=== PATIENT | male | born 1975 | race Caucasian/White ===

== ENCOUNTER 2024-02-03 15:35 | Outpatient (AMB) | payer OTHER, SELFPAY ==
[2024-02-03 15:41] VITALS: BP 132/86; PULSE 102; O2SAT 96; BMI 35.7
--- NOTE | 2024-02-03 15:41 | A.OFFPC_ITS ---
Vital Signs 3 02/03/24 15:41 Height 5 ft 8 in Weight 235 lb 0.6 oz BMI 35.7 BP 132/86 Blood Pressure Location Lt brachial Position Sitting Pulse 102 H Pulse Source Pulse Oximeter Pulse Oximetry (%) 96 Oxygen Delivery Method Room Air Intake Visit Reasons: new patient Insect Control Aide Required: No Allergies No Known Allergies [No Known Allergies*] Allergy (Verified 02/03/24 16:04) Medication List - Last Reconciled 02/03/24 by Chata Santiago PA-C No Known Home Meds Tobacco use date assessed: 02/03/24 Dental Screening Dental Screen Date: 02/03/24 Did you have a dental visit in the last 12 months?: No Did you have a dental problem in the last 6 months where you did not have access to dental care?: No HPI new patient 2 HPI0 Details 48-year-old male with no documented past medical history come in to the office for the 1st time.? Patient is not known to [facility] Patient recently moved back to [place] and is looking to establish care. He is not up-to-date with his colonoscopy. He does mentioned he has a rash on his left thigh which has been present for around 9-10 months. He has had this rash in the past as well and it resolved. The rash is itchy and red but is not painful, leaking, warm, or swollen. He has tried using gold paz cream with no relief. Otherwise he has no acute concerns. [facility] Surgical History History of appendectomy Family History Paternal Grandfather Lung cancer Colon cancer Father Hypertension Social History Housing: Apartment Patient Tobacco Use Status: Never used Tobacco e-Cigarette/Vaping Use: Never Used service: No Current occupational status: employed Cognitive needs: No Hearing needs: No Vision needs: No Questionnaire PHQ-9 Over the last 2 weeks, how often have you been bothered by any of the following problems? 1. Little interest or pleasure in doing things: not at all 2. Feeling down, depressed, or hopeless: several days 3. Trouble falling or staying asleep, or sleeping too much: not at all 4. Feeling tired or having little energy: not at all 5. Poor appetite or overeating: more than half the days 6. Feeling bad about yourself - or that you are a failure or have let yourself or your family down: not at all 7. Trouble concentrating on things, such as reading the newspaper or watching television: not at all 8. Moving or speaking so slowly that other people could have noticed. Or the opposite - being so fidgety or restless that you have been moving around a lot more than usual: not at all 9. Thoughts that you would be better off or of hurting yourself in some way: not at all Total score: 3 Depression Screening Interpretation: Positive Depression Screening Done: Yes 85171 - PHQ-9 Billing: Yes Source: Developed by Drs. Chase Márquez, Summer Aburto, Sean Arshad and colleagues, with an educational randy from [employer]. Thrive Questionnaire Date Thrive assessed: 02/03/24 I am a: Patient What is your living situation today?: I have a steady place to live Within the past 12 months, did the food you bought not last and you didn't have the money to get more?: Never true Within the past 12 months, did you worry whether your food would run out before you got money to buy more?: Never true Do you have trouble paying for medicines?: No Do you have trouble getting transportation to medical appointments?: No Do you have trouble paying your heating and electricity bill?: No Do you have trouble taking care of your child, family member or friend?: No Do you have trouble with day-to-day activities such as bathing, preparing meals, shopping, managing finances, etc.?: No Are you currently unemployed and looking for a job?: No Are you interested in more education?: No Please select the resources that you would like help with: None Currently or been in a relationship where the following occur: No concerns reported THRIVE Score: 0 AUDIT C Alcohol Use Questionnaire (AUDIT-C) 1. How often do you have a drink containing alcohol?: 2-4 times a month 2. How many drinks containing alcohol do you have on a typical day when you are drinking?: 3 or 4 3. How often do you have six or more drinks on one occasion?: Less than monthly Total Score: 4 TRISTIAN-7 AMB Questionnaire TRISTIAN-7 Date TRISTIAN - 7 assessed: 02/03/24 Feeling nervous, anxious, or on edge: 1 = Several days Not being able to stop or control worryin = Several days Worrying too much about different things: 0 = Not at all Trouble relaxin = Not at all Being so restless that it is hard to sit still: 0 = Not at all Becoming easily annoyed or irritable: 1 = Several days Feeling afraid as if something awful might happen: 0 = Not at all Total TRISTIAN-7 score (0-4 normal; 5-9 mild; 10-14 moderate; 15-21 severe): 3 Source: Developed by Drs. Chase Márquez, Summer Aburto, Sean Arshad and colleagues, with an educational randy from [employer]. TRISTIAN-7 Assessment Billing TRISTIAN-7 Assessment Tool: TRISTIAN-7 Assessment 10403 Review of Systems Const Denies body aches, Reports fatigue, Denies fever(s), Denies frequent falls, Denies headache(s), Denies weakness and Reports weight loss Eyes Reports no additional complaints, Denies change in vision and Reports requires corrective lenses ENT Denies dysphagia, Denies dizziness, Denies facial pain, Denies headache(s), Denies nasal congestion and Denies odynophagia Card Denies chest pain, Denies syncope, Denies irregular heart rhythm, Denies leg edema, Denies lightheadedness and Denies dyspnea Resp Denies cough and Denies dyspnea GI Denies constipation, Denies dysphagia, Denies dyspepsia, Denies diarrhea, Denies nausea, Denies odynophagia and Denies vomiting Denies dysuria, Denies urinary frequency, Denies urinary hesitancy and Denies urinary urgency Musc Denies back pain and Denies myalgias Skin/Breast Reports system reviewed and no additional complaints, except as documented Neuro Denies dizziness, Denies syncope, Denies frequent falls, Denies headache(s) and Denies weakness Psych Details: Recent anxiety and depression surrounding the of his friend Reports no additional complaints Endo Reports fatigue Physical exam (Primary Care) Vital Signs: Last Vital Signs Pulse 102 H 02/03/24 15:41 BP 132/86 02/03/24 15:41 Pulse Ox 96 02/03/24 15:41 Oxygen Delivery Method Room Air 02/03/24 15:41 BMI result Body Mass Index 35.7 Tobacco/Smoking Status: Tobacco use Status Tobacco use date assessed 02/03/24 02/03/24 15:42 Patient Tobacco Use Status Never used Tobacco 02/03/24 15:49 e-Cigarette/Vaping Use Never Used 02/03/24 15:54 PHQ-9: PHQ-9 Score PHQ-9: Total score 3 02/03/24 16:02 Depression Screening Interpretation: Positive Thrive Assessment: Date of Thrive Assessment Date Thrive assessed 02/03/24 02/03/24 15:49 Currently or been in a relationship where the following occur: No concerns reported Const General: cooperative, healthy appearing, comfortable and no acute distress Orientation/consciousness: patient oriented x3 HENMT Head: Yes normocephalic Ears: hearing grossly normal bilaterally, external ears normal, TM's normal bilaterally and EAC's normal General nose exam: Normal external nose present Face and sinus: Yes normal facial exam and Yes sinuses nontender Mouth: Normal oral and palatal mucosa present and tongue normal Throat: Yes posterior oropharynx normal Eyes General: appearance normal, both eyes and all related structures Conjunctivae: conjunctivae normal Pupils: Equal, round and reactive pupils present EOM: EOMs intact bilaterally and No Nystagmus present Neck Neck: Yes normal visual inspection, Yes full ROM and Yes no lymphadenopathy Chest Chest palpation & inspection: normal inspection of the chest Resp Effort & Inspection: normal respiratory effort Auscultation: clear to auscultation bilaterally, no crackles, no rales, no rhonchi, no wheezes and breath sounds present Cardio Rate: regular rate Rhythm: regular rhythm Peripheral pulses: radial pulses present and dorsalis pedis present GI Inspection: Yes normal to inspection and No Abdominal wall edema Palpation (GI): Soft to palpation, not firm and nontender Auscultation: normal bowel sounds Rectal Exam - Male: Yes deferred General: Yes no CVA tenderness Back/Spine/Pelvis Back: no CVA tenderness Skin Other: Red, dry, patchy, scaling rash on left lateral thigh without warmth or swelling. Full body images: 2 1. Red scaling rash Neuro General: patient oriented x3 Cranial nerves: Yes Equal, round and reactive pupils present, Yes Midline tongue present, Yes Ability to bilaterally elevate shoulders present and No Nystagmus present Gait exam (Neuro): Normal gait present Extrem General: Yes normal to inspection, Yes full ROM, No no pedal edema and No edema Psych Speech and movement: Normal speech and movement present Affect: normal affect Insight: Good insight present (Psych) Judgement: Good judgement present (Psych) Assessment and Plan Assessment & Plan (1) Rash: Code(s): R21 - Rash and other nonspecific skin eruption Plan: Patient has a red, scaling, dry and itchy rash on left lateral thigh. He has been using gold paz psoriasis cream [id number] without relief. The rash has been present since he moved back to [place] in 04/2023. The rash looks to be consistent with psoriasis we will trial steroid creams and referral to Dermatology. (2) Fatigue: Code(s): R53.83 - Other fatigue Plan: Patient has been complaining of daytime fatigue and complains the patient snores and has pauses in his breathing. Will order for at home sleep study and follow up in 3 months. (3) Annual physical exam: Code(s): Z00.00 - Encounter for general adult medical examination without abnormal findings Plan: Patient is up-to-date on current vaccinations and Cologuard referral was sent today for colorectal cancer screening. We will follow up in 3 months after labs and sleep study or sooner pending lab results. Plan This note was constructed using voice recognition software. While every effort has been made to ensure accuracy and wash oil cooler operator, still areas may have been included sometimes these areas may affect the content or meeting of the given symptoms. Total time spent caring for the patient today was 35 minutes. This includes time spent before the visit reviewing the chart, time spent during the visit, and time spent after the visit and documentation. Orders: Orders 2 Prostate Specific Antigen Scr Today Z00.00 - Encounter for general adult medical examination without abnormal findings Thyroid Stimulating Hormone Today Z00.00 - Encounter for general adult medical examination without abnormal findings Complete Blood Count Auto Diff Today Z00.00 - Encounter for general adult medical examination without abnormal findings Comprehensive Met. Panel Today Z00.00 - Encounter for general adult medical examination without abnormal findings Lipid Panel Today Z00.00 - Encounter for general adult medical examination without abnormal findings RT home sleep study Today R53.83 - Other fatigue Free T4 (Free Thyroxine) Today Z00.00 - Encounter for general adult medical examination without abnormal findings Referrals 2 Cologuard Test Z12.11 - Encounter for screening for malignant neoplasm of colon Dermatology Referral R21 - Rash and other nonspecific skin eruption Coding Level of Care Code New Pt Prev Care 40-64y(35715) Diagnoses Rash R21 Fatigue R53.83 Annual physical exam Z00.00 Additional Codes TRISTIAN-7 Assessment Billing - TRISTIAN-7 Assessment Tool: TRISTIAN-7 Assessment 37460 ([id number])
== END 2024-02-03 16:31 | disposition home or self-care (01) ==
DX: Z00.00 Encounter for general adult medical examination without abnormal findings (principal); R21 Rash and other nonspecific skin eruption; R53.83 Other fatigue
CPT/HCPCS: 99386

== ENCOUNTER → 2024-03-22 08:00 | Outpatient (BNV) | payer OTHER, SELFPAY | PROVIDERS: Visit Provider Internal Medicine | DX: G47.33 Obstructive sleep apnea (adult) (pediatric) (principal) | CPT/HCPCS: 95806 ==

== ENCOUNTER → 2024-03-22 08:03 | Outpatient (REF) | payer OTHER, SELFPAY | LOC: HO.SL 08:03 | DX: R53.83 Other fatigue (principal) | CPT/HCPCS: 95806 ==

== ENCOUNTER 2024-03-23 06:49 | Outpatient (REF) | payer OTHER, SELFPAY ==
[2024-03-23 07:02] LABS: MANUAL DIFF FLAG NO
[2024-03-23 07:22] LABS: Basophils Absolute Auto 0.1 X10*3/uL (0.0-0.2); Basophils Percent Auto 0.8 % (0-2); Eosinophils Absolute Auto 0.1 X10*3/uL (0.0-0.4); Eosinophils Percent Auto 1.6 % (0-4); Hematocrit 45.3 % (42.0-52.0); Hemoglobin 15.3 g/dl (14.0-18.0); Imm Gran Abs Auto 0.04 X10*3/uL (0.00-0.03); Imm Gran Pct Auto 0.6 % (0.0-0.4); Lymphocytes Absolute Auto 1.4 X10*3/uL (1.2-4.9); Lymphocytes Percent Auto 22.6 % (20-40); Mean Corpuscular HGB Conc 33.8 g/dl (31.0-36.0); Mean Corpuscular Hemoglobin 30.5 pg (27.0-33.0); Mean Corpuscular Volume 90.4 fL (80.0-98.0); Mean Platelet Volume 10.3 fL (9.4-12.4); Monocytes Absolute Auto 0.7 X10*3/uL (0.1-1.2); Monocytes Percent Auto 10.5 % (2-11); Neutrophils Absolute Auto 4.1 x10*3/uL (2.0-8.3); Neutrophils Percent Auto 63.9 % (45-73); Platelet Count 221 X10*3/uL (160-400); Red Blood Count 5.01 X10*6/uL (4.60-5.80); White Blood Count 6.4 X10*3/uL (4.8-10.8)
[2024-03-23 07:55] LABS: Alanine Aminotransferase 51 U/L (0-40); Albumin Level 4.3 g/dL (3.5-5.0); Alkaline Phosphatase 69 U/L (39-117); Anion Gap 14 (12-20); Aspartate Amino Transferase 23 U/L (5-37); Bilirubin Total 0.6 mg/dL (0.0-1.0); Blood Urea Nitrogen 16 mg/dL (9-16); Calcium 9.6 mg/dL (8.4-10.2); Carbon Dioxide 28 mmol/L (22-29); Chloride 104 mmol/L (96-108); Cholesterol 227 mg/dL (<200); Estimated Glomerular Filt Rate > 60; Glucose Random 128 mg/dL (60-115); HDL Cholesterol 53 mg/dL (>40); LDL Cholesterol Calculated 151 mg/dL (<100); Potassium 4.6 mmol/L (3.3-5.1); Sodium 141 mmol/L (135-145); Total Protein 7.3 g/dL (6.5-8.0); Triglycerides 117 mg/dL (<150)
[2024-03-23 08:03] LABS: Prostate Specific Antigen Scr 0.19 ng/mL (<0.05-4.0)
[2024-03-23 08:14] LABS: Free T4 (Free Thyroxine) 0.89 ng/dL (0.71-1.85); Thyroid Stimulating Hormone 1.84 uIU/mL (0.32-4.0)
== END 2024-03-23 06:50 | disposition home or self-care (01) ==
LOC: HO.LAB 06:49
DX: Z00.00 Encounter for general adult medical examination without abnormal findings (principal); Z12.5 Encounter for screening for malignant neoplasm of prostate
CPT/HCPCS: 36415; 80053; 80061; 84153; 84439; 84443; 85025

== ENCOUNTER 2024-04-06 17:12 | Emergency (ER) | payer OTHER, SELFPAY ==
--- NOTE | ~2024-04-06 | US_ITS ---
EXAMINATION: US ABDOMEN LIMITED CLINICAL INFORMATION: Right upper quadrant pain.. COMPARISON: None available. TECHNIQUE: Real-time imaging of the right upper quadrant abdominal viscera. FINDINGS: PANCREAS: The pancreas is obscured by bowel gas. LIVER: The liver is normal in size. The liver contour is normal. Liver is of increased parenchymal echotexture consistent with fatty infiltration with some apparent areas of focal fatty sparing near the gallbladder fossa. There is no intrahepatic biliary duct dilatation seen. GALLBLADDER: There is a moderate amount of faintly echogenic and mostly nonshadowing material within the gallbladder with some faint areas of shadowing. There is no gallbladder wall thickening or pericholecystic fluid. A negative Santizo's sign was reported by the chief nuclear medicine technologist. COMMON BILE DUCT: Normal in caliber measuring 0.3 cm in diameter. RIGHT KIDNEY: Normal. No hydronephrosis. No renal calculi or focal parenchymal lesions. The kidney measures 11.9 cm in maximum dimension. FREE FLUID: None. US/US abdomen limited IMPRESSION: 1. There is a moderate amount of faintly echogenic and mostly nonshadowing material within the gallbladder with some faint areas of shadowing. This could represent sludge and small calculi. 2. No evidence of acute cholecystitis. 3. Hepatic steatosis with areas of focal fatty sparing near the gallbladder fossa. 4. The pancreas is obscured by bowel gas. Electronically signed by: Dion Ruelas MD 04/07/2024 12:21 AM EDT
[2024-04-06 18:05] VITALS: BP 153/106; PULSE 85; RESP 16; TEMP 37; O2SAT 98; BMI 37.3
--- NOTE | 2024-04-06 18:08 | ECG_ITS ---
Test Reason : CHEST PAIN Blood Pressure : / mmHG Vent. Rate : 081 BPM Atrial Rate : 081 BPM P-R Int : 150 ms QRS Dur : 104 ms QT Int : 402 ms P-R-T Axes : 001 -32 -08 degrees QTc Int : 466 ms Normal sinus rhythm Left axis deviation Minimal voltage criteria for LVH, may be normal variant ( R in aVL ) Abnormal ECG No previous ECGs available Referred By: Demario Jimenez Electronically Signed By:BRIDGET CHIRINOS
--- NOTE | 2024-04-06 18:09 | ED.GENADULT ---
HPI - General Adult General Chief complaint: Chest Pain Stated complaint: upper abd pain Time Seen by Provider: 04/06/24 21:29 Source: patient Limitations: no limitations History of Present Illness ED Provider: willie GALO narrative: Patient with no significant abdominal problems in the past used to drink in the past not anymore noticed pain in the upper abdomen and epigastric right upper quadrant earlier today after lunch with nausea feeling and bloatedness history of same pain 2 more times in the past which resolved of its own. No fever no chills no urinary symptoms no history of kidney stone no history of pancreatitis Related Data Previous Rx's ?Medication ?Instructions ?Recorded triamcinolone acetonide 0.1 % 1 appl topical DAILY PRN rash #15 02/03/24 topical cream grams losartan 50 mg-hydrochlorothiazide 1 tab PO DAILY #30 tabs 04/06/24 12.5 mg tablet ondansetron 4 mg disintegrating 4 mg PO Q6-8H PRN nausea and 04/06/24 tablet vomiting #7 tabs pantoprazole 40 mg tablet,delayed 40 mg PO DAILY #20 tabs 04/06/24 release (Protonix) Allergies Allergy/AdvReac Type Severity Reaction Status Date / Time No Known Allergies Allergy Verified 04/06/24 18:08 [No Known Allergies*] Review of Systems Review of Systems: Yes all other systems are reviewed and are negative PMFSH Past Medical History Surgical History History of appendectomy Family History Family History Paternal Grandfather Lung cancer Colon cancer Father Hypertension Social History Social History Housing: Apartment Patient Tobacco Use Status: Never used Tobacco Smoked in Last 30 Days: No e-Cigarette/Vaping Use: Never Used Use of substances other than those prescribed or required for medical reasons: No Advance Directives: No Advance Directives Information Provided: No Do you have a plan to hurt others: No Plan service: No Current occupational status: employed Cognitive needs: No Hearing needs: No Vision needs: No Physical Exam ED Vital Signs: Vital Signs - 24 hr 04/06/24 18:05 04/06/24 21:16 04/06/24 21:28 Temperature 98.6 F 97.0 F 96.8 F Pulse Rate 85 73 75 Respiratory Rate 16 16 15 Blood Pressure 153/106 H 155/91 H 166/93 H Pulse Oximetry 98 100 100 Oxygen Delivery Method Room Air Room Air Room Air 04/06/24 23:40 04/07/24 00:00 Temperature 98.1 F 98.1 F Pulse Rate 74 74 Respiratory Rate 16 16 Blood Pressure 170/90 H 170/90 H Pulse Oximetry 100 100 Oxygen Delivery Method Room Air Room Air BMI result Body Mass Index 37.3 Appearance: Alert. Oriented X3. No acute distress. Eyes: No pallor or icterus ENT: Pharynx normal. Oral Mucosa moist Neck: Normal inspection. Neck supple. CVS: Normal heart rate and rhythm. Pulses normal. Respiratory: No respiratory distress. Equal air entry bilateral, no wheezing/rales/rhonchi Abdomen: Soft and tender in epigastric area Bowel sounds are present, no mass palpable, no CVA tenderness Skin: Skin warm and dry. Normal skin color. Normal skin turgor. Extremities: No lower extremity edema. No calf tenderness Neuro: Oriented X 3. No motor deficit. Course Course Course Narrative: RME: Done by HUMBLE Jimenez. 48-year-old male with no past medical history presents to ED for chest upper abdominal pain every time she eats since Wednesday. Patient denies any fever, chills, or lower abdominal pain. Patient states burping. Positive for upper abdominal tenderness on palpation. EKG labs ordered Medications Administered Discontinued Medications Generic Name Dose Route Start Last Admin Trade Name Freq PRN Reason Stop Dose Admin Famotidine 20 mg 04/06/24 21:41 04/06/24 22:36 Famotidine/Pf 20 Mg/2 Ml Vial IVPUSH 04/06/24 21:42 20 mg ONCE ONE Administration Sodium Chloride 1,000 mls @ 999 mls/hr 04/06/24 21:41 04/06/24 23:50 Ns IV 04/06/24 22:41 Infused .Q1H1M ONE Infusion Ketorolac Tromethamine 30 mg 04/06/24 21:41 04/06/24 22:36 Ketorolac Tromethamine 30 Mg/Ml Vial IVPUSH 04/06/24 21:42 30 mg ONCE ONE Administration Losartan Potassium 50 mg 04/06/24 23:46 04/06/24 23:56 Losartan Potassium 50 Mg Tablet PO 04/06/24 23:47 50 mg ONCE ONE Administration Protocol Ondansetron HCl 4 mg 04/06/24 21:41 04/06/24 22:36 Ondansetron Hcl 4 Mg/2 Ml Vial IVPUSH 04/06/24 21:42 4 mg ONCE ONE Administration Medical Decision Making Medical Decision Making [facility] Narrative: Patient with upper abdominal pain etiology not clear Santizo sign is negative ultrasound showed echogenic bile slightly elevated liver functions patient felt better after IV fluids possibly he has sludge in the gallbladder causing the pain intermittently advised to follow with [facility]/PCP avoid fried foods Differential Diagnosis Differential Diagnoses: The differential diagnosis associated with the presentation includes Pancreatitis/gastritis/cholelithiasis/cholecystitis Lab Data [facility] Lab Attestation statement: I reviewed the patient's lab results. 04/06/24 18:24 04/06/24 18:24 Labs: Lab Results 04/06/24 Range/Units 18:24 WBC 9.6 (4.8-10.8) X10*3/uL RBC 5.01 (4.60-5.80) X10*6/uL Hgb 15.3 (14.0-18.0) g/dl Hct 45.0 (42.0-52.0) % MCV 89.8 (80.0-98.0) fL MCH 30.5 (27.0-33.0) pg MCHC 34.0 (31.0-36.0) g/dl RDW 13.0 (11.0-16.0) % Plt Count 260 (160-400) X10*3/uL MPV 10.0 (9.4-12.4) fL Immature Gran % (Auto) 0.5 H (0.0-0.4) % Neut % (Auto) 76.2 H (45-73) % Lymph % (Auto) 12.3 L (20-40) % [place] % (Auto) 9.8 (2-11) % Eos % (Auto) 0.5 (0-4) % Baso % (Auto) 0.7 (0-2) % Lymph # (Auto) 1.2 (1.2-4.9) X10*3/uL [place] # (Auto) 0.9 (0.1-1.2) X10*3/uL Eos # (Auto) 0.1 (0.0-0.4) X10*3/uL Baso # (Auto) 0.1 (0.0-0.2) X10*3/uL Abs Immat Gran (auto) 0.05 H (0.00-0.03) X10*3/uL Absolute Neuts (auto) 7.3 (2.0-8.3) x10*3/uL Absolute Nucleated RBC 0.000 (0.0-0.012) X10*3/uL Nucleated RBC % (auto) 0.0 (0.0-0.2) /100WBC PT 11.0 (10.9-12.4) SEC INR 0.9 (0.9-1.1) APTT 26.2 (26.0-36.8) SEC Sodium 141 (135-145) mmol/L Potassium 4.1 (3.3-5.1) mmol/L Chloride 101 (96-108) mmol/L Carbon Dioxide 33 H (22-29) mmol/L Anion Gap 11 L (12-20) BUN 14 (9-16) mg/dL Creatinine 0.94 (0.5-1.4) mg/dL Estim Creat Clear Calc 116.3 Estimated GFR > 60 Random Glucose 133 H (60-115) mg/dL Calcium 10.0 (8.4-10.2) mg/dL Total Bilirubin 1.4 H (0.0-1.0) mg/dL AST 88 H (5-37) U/L ALT 82 H (0-40) U/L Alkaline Phosphatase 97 (39-117) U/L Troponin I High Sens < 2.7 (<3.5-35.0) ng/L Total Protein 7.8 (6.5-8.0) g/dL Albumin 4.6 (3.5-5.0) g/dL Lipase 35 (8-78) U/L Radiology Impression Discussion of test interpretation with radiology: I have reviewed the radiologist's reading. Radiologist Impression: [address] [address] Ultrasound Report Signed Patient: Waldemar Bazzi MR#: [id number] : 1975 Acct:[id number] Age/Sex: 48 / M ADM Date: 04/06/24 Loc: HO.ED Attending Dr: Ordering Physician: Ehsan Sarmiento MD Date of Service: 04/06/24 Procedure(s): US abdomen limited Accession Number(s): [id number] cc: Chata Santiago PA-C; Ehsan Sarmiento MD~ EXAMINATION: US ABDOMEN LIMITED CLINICAL INFORMATION: Right upper quadrant pain.. COMPARISON: None available. TECHNIQUE: Real-time imaging of the right upper quadrant abdominal viscera. FINDINGS: PANCREAS: The pancreas is obscured by bowel gas. LIVER: The liver is normal in size. The liver contour is normal. Liver is of increased parenchymal echotexture consistent with fatty infiltration with some apparent areas of focal fatty sparing near the gallbladder fossa. There is no intrahepatic biliary duct dilatation seen. GALLBLADDER: There is a moderate amount of faintly echogenic and mostly nonshadowing material within the gallbladder with some faint areas of shadowing. There is no gallbladder wall thickening or pericholecystic fluid. A negative Santizo's sign was reported by the ct scan technologist. COMMON BILE DUCT: Normal in caliber measuring 0.3 cm in diameter. RIGHT KIDNEY: Normal. No hydronephrosis. No renal calculi or focal parenchymal lesions. The kidney measures 11.9 cm in maximum dimension. FREE FLUID: None. US/US abdomen limited IMPRESSION: 1. There is a moderate amount of faintly echogenic and mostly nonshadowing material within the gallbladder with some faint areas of shadowing. This could represent sludge and small calculi. 2. No evidence of acute cholecystitis. 3. Hepatic steatosis with areas of focal fatty sparing near the gallbladder fossa. 4. The pancreas is obscured by bowel gas. Electronically signed by: Dion Ruelas MD 04/07/2024 12:21 AM EDT Discharge Plan Discharge Clinical Impression: Abdominal pain, Hypertension Patient Disposition: Home, Self-Care Instructions: Abdominal Pain (ED), Hypertension (ED) Additional Instructions: Drink plenty of fluids Medication for nausea and pain as prescribed Recheck your liver functions in 2 weeks Avoid fried food Follow up with your PCP/food service worker hospital if the pain continues for HIDA scan to confirm gallbladder functions Your blood patient's slightly elevated 170/100 decrease salt intake and caffeine if the blood pressure stays higher than 140/90 start on losartan 50 mg daily after discussing with your PCP Prescriptions: New pantoprazole [Protonix] 40 mg tablet,delayed release (DR/EC) 40 mg PO DAILY Qty: 20 0RF ondansetron 4 mg tablet,disintegrating 4 mg PO Q6-8H PRN (Reason: nausea and vomiting) Qty: 7 0RF losartan-hydrochlorothiazide 50-12.5 mg tablet 1 tab PO DAILY Qty: 30 0RF No Action triamcinolone acetonide 0.1 % cream 1 appl topical DAILY PRN (Reason: rash) Qty: 15 0RF Rx Instructions: Apply to affected area PRN; do not use for more than 2 weeks Referrals: Andrew Guerra MD [Physician] - 1 week Interventions: ED Discharge Assessment Last Done: 04/07/24 00:00 Discharge Date/Time: 04/07/24 00:00 Print Language: [place]an
[2024-04-06 18:31] LABS: MANUAL DIFF FLAG NO
[2024-04-06 18:38] LABS: Basophils Absolute Auto 0.1 X10*3/uL (0.0-0.2); Basophils Percent Auto 0.7 % (0-2); Eosinophils Absolute Auto 0.1 X10*3/uL (0.0-0.4); Eosinophils Percent Auto 0.5 % (0-4); Hemoglobin 15.3 g/dl (14.0-18.0); Imm Gran Abs Auto 0.05 X10*3/uL (0.00-0.03); Imm Gran Pct Auto 0.5 % (0.0-0.4); Lymphocytes Absolute Auto 1.2 X10*3/uL (1.2-4.9); Lymphocytes Percent Auto 12.3 % (20-40); Mean Corpuscular Hemoglobin 30.5 pg (27.0-33.0); Mean Corpuscular Volume 89.8 fL (80.0-98.0); Monocytes Absolute Auto 0.9 X10*3/uL (0.1-1.2); Monocytes Percent Auto 9.8 % (2-11); Neutrophils Absolute Auto 7.3 x10*3/uL (2.0-8.3); Neutrophils Percent Auto 76.2 % (45-73); Platelet Count 260 X10*3/uL (160-400); Red Blood Count 5.01 X10*6/uL (4.60-5.80); White Blood Count 9.6 X10*3/uL (4.8-10.8)
[2024-04-06 18:44] LABS: INTERNATIONAL NORM RATIO 0.9 (0.9-1.1)
[2024-04-06 18:46] LABS: Partial Thromboplastin Time 26.2 SEC (26.0-36.8)
[2024-04-06 18:49] LABS: Alanine Aminotransferase 82 U/L (0-40); Albumin Level 4.6 g/dL (3.5-5.0); Alkaline Phosphatase 97 U/L (39-117); Anion Gap 11 (12-20); Aspartate Amino Transferase 88 U/L (5-37); Bilirubin Total 1.4 mg/dL (0.0-1.0); Blood Urea Nitrogen 14 mg/dL (9-16); Carbon Dioxide 33 mmol/L (22-29); Chloride 101 mmol/L (96-108); Creatinine Clr Calc Pharmacy 116.3; Estimated Glomerular Filt Rate > 60; Glucose Random 133 mg/dL (60-115); Lipase 35 U/L (8-78); Potassium 4.1 mmol/L (3.3-5.1); Sodium 141 mmol/L (135-145); Total Protein 7.8 g/dL (6.5-8.0)
[2024-04-06 18:56] LABS: Troponin-I High Sensitivity < 2.7 ng/L (<3.5-35.0)
[2024-04-06 21:16] VITALS: BP 155/91; PULSE 73; RESP 16; TEMP 36.1; O2SAT 100
[2024-04-06 21:28] VITALS: BP 166/93; PULSE 75; RESP 15; TEMP 36; O2SAT 100
[2024-04-06] MEDS: 0.9 % Sodium Chloride 1,000 ML 999 ML IV (22:36)
[2024-04-06] MEDS: Famotidine/PF 20 MG/2 ML VIAL IVPUSH (22:36)
[2024-04-06] MEDS: Ketorolac Tromethamine 30 MG/ML VIAL IVPUSH (22:36)
[2024-04-06] MEDS: ondansetron HCL 4 MG/2 ML VIAL IVPUSH (22:36)
[2024-04-06 23:40] VITALS: BP 170/90; PULSE 74; RESP 16; TEMP 36.7; O2SAT 100
--- NOTE | 2024-04-06 23:40 | PC.NURSE ---
at time of d/c bp 170/90, check 3x and consistent. made aware.
[2024-04-06] MEDS: Losartan Potassium 50 MG TABLET PO (23:56)
[2024-04-07] VITALS: BP 170/90; PULSE 74; RESP 16; TEMP 36.7; O2SAT 100
== END 2024-04-07 | disposition home or self-care (01) ==
PROVIDERS: Physician Assistant; Emergency Provider Internal Medicine
DX: R07.89 Other chest pain (principal); R10.13 Epigastric pain; I10 Essential (primary) hypertension; R10.11 Right upper quadrant pain; R11.0 Nausea; Z79.899 Other long term (current) drug therapy
CPT/HCPCS: 36415; 76705; 80053; 83690; 84484; 85025; 85610; 85730; 93005; 96361; 96374; 96375; 99285; J1885; J2405

== ENCOUNTER 2024-04-08 08:26 | Emergency (ER) | payer OTHER, SELFPAY ==
--- NOTE | ~2024-04-08 | CT_ITS ---
EXAMINATION: CT ABDOMEN AND PELVIS WITH CONTRAST CLINICAL INFORMATION: Right upper quadrant pain, increased LFTs, rule out biliary disease COMPARISON: Abdominal ultrasound 04/06/2024 TECHNIQUE: Multidetector volumetric images were obtained from the superior aspect of the liver through the pubic symphysis following administration 85 mL of Omnipaque 350 intravenous contrast. Sagittal and coronal reformatted images were obtained on the technologist's workstation. Oral contrast: No This CT examination was performed using dose optimization techniques as appropriate, variously including the following: *Automated exposure control *Adjustment of mA and/or kV according to patient size (this includes techniques or standardized protocols for targeted exams where dose is matched to indication/reason for exam; i.e. extremities or head) *Use of iterative reconstruction technique DLP: 775 mGy-cm FINDINGS: LUNG BASES: Focal linear groundglass opacity in the right middle lobe may reflect atelectasis versus focal infectious/inflammatory process. LIVER, GALLBLADDER, AND BILIARY TREE: Mild ataxia ptosis. No focal hepatic lesions or intrahepatic biliary ductal dilatation. The gallbladder is unremarkable with no evidence of radiopaque gallstones, gallbladder wall thickening, or obvious pericholecystic inflammatory changes. PANCREAS: Unremarkable. SPLEEN: Unremarkable. ADRENAL GLANDS: Unremarkable. KIDNEYS AND URETERS: The kidneys are normal in size, shape, and attenuation. No hydronephrosis, hydroureter, or calculi seen. No perinephric stranding. BLADDER: Unremarkable. GASTROINTESTINAL TRACT: The small and large bowel are unremarkable. ABDOMINAL WALL: Tiny umbilical hernia. LYMPH NODES: Normal. VASCULAR: Unremarkable. PELVIC VISCERA: Unremarkable. OSSEOUS STRUCTURES: Mild spondylitic changes in the spine. CT/CT abdomen pelvis w IV con IMPRESSION: 1. No acute abnormality in the abdomen or pelvis. 2. Focal linear groundglass opacity in the right middle lobe may reflect atelectasis versus focal mild infectious/inflammatory process. Fleischner guidelines were followed. Electronically signed by: Chase Walls MD 04/08/2024 11:17 AM EDT
--- NOTE | ~2024-04-08 | US_ITS ---
EXAMINATION: US ABDOMEN LIMITED CLINICAL INFORMATION: Elevated bilirubin, AST ALT alk-phos. COMPARISON: CT scan of the abdomen and pelvis performed earlier same day. Abdominal ultrasound 04/06/2024. TECHNIQUE: Real-time imaging of the right upper quadrant abdominal viscera. FINDINGS: GALLBLADDER: Multiple gallstones with echogenic bile. Gallbladder wall 2 mm no no pericholecystic fluid noted. COMMON BILE DUCT: Normal in caliber measuring 0.4 cm in diameter. No stones seen in the common bile duct US/US abdomen limited IMPRESSION: No common bile duct stone identified Cholelithiasis. Echogenic bile in gallbladder. No ultrasound findings to suggest cholecystitis No change Electronically signed by: Mayur Mullins MD 04/08/2024 01:52 PM EDT
[2024-04-08 08:28] VITALS: BP 140/99; PULSE 102; RESP 16; TEMP 36.5; O2SAT 100; BMI 36.6
--- NOTE | 2024-04-08 08:33 | ECG_ITS ---
Test Reason : epigastric pain Blood Pressure : / mmHG Vent. Rate : 104 BPM Atrial Rate : 104 BPM P-R Int : 136 ms QRS Dur : 096 ms QT Int : 360 ms P-R-T Axes : 001 -36 -04 degrees QTc Int : 473 ms Sinus tachycardia Left axis deviation Abnormal ECG When compared with ECG of 06-APR-2024 18:08, No significant change was found Referred By: Generic ED Physician Electronically Signed By:BRIDGET CHIRINOS
[2024-04-08 08:55] LABS: MANUAL DIFF FLAG NO
--- NOTE | 2024-04-08 08:56 | PC.NURSE ---
patient arrives through external triage with cc of epigastric pain, patient states he was seen here on Wednesday and told his gallbladder was inflamed, was sent home with some prescriptions, states the pain came back last night but they never filled his pain medication. patient states the pain is in his epigastric area now, states he had one episode of nausea and vomiting, states he has been burping, and describes the pain as burning up his sternum. patient denies any fevers or chills, took temp at home and it was 97 orally. denies any diarrhea or painful or difficulty urinating. states the pain feels different than it did on . abdomen soft nontender to palpation, bowel sounds present in all four quadrants, LSCTA, no swelling appreciated to extremeties, PERRLA, patient is well appearing. awaiting provider eval at this time
[2024-04-08 09:01] VITALS: PULSE 75; RESP 16; TEMP 36.4; O2SAT 98
[2024-04-08 09:03] LABS: Basophils Absolute Auto 0.1 X10*3/uL (0.0-0.2); Basophils Percent Auto 0.9 % (0-2); Eosinophils Percent Auto 0.6 % (0-4); Hematocrit 44.1 % (42.0-52.0); Hemoglobin 15.4 g/dl (14.0-18.0); Imm Gran Abs Auto 0.03 X10*3/uL (0.00-0.03); Imm Gran Pct Auto 0.4 % (0.0-0.4); Lymphocytes Absolute Auto 0.8 X10*3/uL (1.2-4.9); Mean Corpuscular HGB Conc 34.9 g/dl (31.0-36.0); Mean Corpuscular Hemoglobin 31.3 pg (27.0-33.0); Mean Corpuscular Volume 89.6 fL (80.0-98.0); Mean Platelet Volume 10.1 fL (9.4-12.4); Monocytes Absolute Auto 0.6 X10*3/uL (0.1-1.2); Monocytes Percent Auto 9.3 % (2-11); Neutrophils Absolute Auto 5.1 x10*3/uL (2.0-8.3); Neutrophils Percent Auto 76.8 % (45-73); Platelet Count 223 X10*3/uL (160-400); Red Blood Count 4.92 X10*6/uL (4.60-5.80); White Blood Count 6.7 X10*3/uL (4.8-10.8)
[2024-04-08 09:10] LABS: Alanine Aminotransferase 291 U/L (0-40); Albumin Level 4.4 g/dL (3.5-5.0); Alkaline Phosphatase 148 U/L (39-117); Anion Gap 13 (12-20); Aspartate Amino Transferase 196 U/L (5-37); Bilirubin Direct 4.4 mg/dL (0.0-0.5); Bilirubin Total 7.4 mg/dL (0.0-1.0); Blood Urea Nitrogen 13 mg/dL (9-16); Calcium 9.7 mg/dL (8.4-10.2); Carbon Dioxide 27 mmol/L (22-29); Chloride 104 mmol/L (96-108); Creatinine Clr Calc Pharmacy 125.9; Estimated Glomerular Filt Rate > 60; Glucose Random 105 mg/dL (60-115); Potassium 4.3 mmol/L (3.3-5.1); Sodium 140 mmol/L (135-145); Total Protein 7.6 g/dL (6.5-8.0)
--- NOTE | 2024-04-08 10:25 | ED_ITS ---
HPI - Abdominal Pain General Chief Complaint: Abdominal Pain Stated Complaint: upper abd pain Time Seen by Provider: 04/08/24 09:54 Source: patient Mode of arrival: ambulatory Limitations: no limitations History of Present Illness ED Provider: Dr. Cristian Al HPI narrative: 48-year-old male with a history of obstructive sleep apnea, Tourette syndrome, appendectomy who presents emergency department for evaluation of right upper quadrant, epigastric pain radiating to back. This is the patient's 3rd episode in 1-2 weeks. Patient was seen in the ED on 04/06/2024 for right upper quadrant epigastric pain which began several hours after eating lunch. Bilirubin was 1.4 with an elevated AST and ALT of 88 and 82 with a normal alk-phos. Right upper quadrant ultrasound revealed sludge and small gallstones. No evidence for cholecystitis in the common bile duct was normal. Patient felt better after treatment in the emergency department. Patient ate Nigerien food last night at around 20:30 hours and then a proximally 1-1/2 hours later developed epigastric pain radiating to his back with associated nausea and vomiting. Pain was 8/10 at its worst. He had no fever or chills. Pain has been constant since onset. He had no bowel movement in 2 days. He denied fever, chills, chest pain or shortness of breath. Related Data Previous Rx's ?Medication ?Instructions ?Recorded triamcinolone acetonide 0.1 % 1 appl topical DAILY PRN rash #15 02/03/24 topical cream grams losartan 50 mg-hydrochlorothiazide 1 tab PO DAILY #30 tabs 04/06/24 12.5 mg tablet ondansetron 4 mg disintegrating 4 mg PO Q6-8H PRN nausea and 04/06/24 tablet vomiting #7 tabs pantoprazole 40 mg tablet,delayed 40 mg PO DAILY #20 tabs 04/06/24 release (Protonix) Allergies Allergy/AdvReac Type Severity Reaction Status Date / Time No Known Allergies Allergy Verified 04/08/24 08:28 [No Known Allergies*] Review of Systems Review of Systems Yes all other systems are reviewed and are negative [facility] Past Medical History [facility] Narrative: Social history: He denies tobacco use. He stopped drinking alcohol January 22 2024. Prior to that he was drinking 4 beers per day. He denies drug use. Surgical History History of appendectomy Family History Family History Paternal Grandfather Lung cancer Colon cancer Father Hypertension Social History Social History Housing: Apartment Patient Tobacco Use Status: Never used Tobacco Smoked in Last 30 Days: No e-Cigarette/Vaping Use: Never Used Use of substances other than those prescribed or required for medical reasons: No Advance Directives: No Advance Directives Information Provided: No Do you have a plan to hurt others: No Plan service: No Current occupational status: employed Cognitive needs: No Hearing needs: No Vision needs: No Physical Exam ED Vital Signs: Vital Signs - 24 hr 04/08/24 08:28 04/08/24 09:01 04/08/24 10:49 Temperature 97.7 F 97.5 F 98.8 F Pulse Rate 102 H 75 87 Respiratory Rate 16 16 16 Blood Pressure 140/99 H 156/101 H Pulse Oximetry 100 98 98 Oxygen Delivery Method Room Air Room Air Room Air BMI result Body Mass Index 36.6 Vital signs revealed an elevated heart rate of 102 and an elevated blood pressure of 140/99. Exam: General: Awake, alert in no distress Head: Normocephalic, atraumatic EENT: PERRL, Lids normal, sclera normal, conjunctiva normal, nose normal , ears normal, throat without erythema or exudates Neck: Supple, no adenopathy Lung: breath sounds symmetric, no wheezing, rales or rhonchi Chest: symmetric movement, nontender Heart: regular rate and rhythm, normal S1, S2 no murmurs or rubs Abdomen: soft, moderate right upper quadrant and epigastric tenderness, positive Santizo sign, no abdominal distention, normoactive bowel sounds Back: no vertebral tenderness, no CVAT Extremities: no deformities, moves all extremities symmetrically Neuro: Awake, alert, oriented, normal speech, cranial nerves intact, moves all extremities symmetrically Psych: Pleasant, cooperative Medical Decision Making Medical Decision Making MDM Narrative: 48-year-old male with a history of obstructive sleep apnea, Tourette syndrome, appendectomy who presents emergency department for evaluation of right upper quadrant, epigastric pain radiating to back since 23:00 hours last night- occurred proximally 1-1/2 hours after eating Nigerien food, pain is associated with nausea and vomiting. This is the patient's 3rd episode of this pain and he was seen here in the emergency department on 04/06/2024 with workup revealing slight elevation in his AST (88), ALT (82) with normal alk-phos and normal lipase. Right upper quadrant ultrasound at that time did reveal sludge and small gallstones. Vital signs did reveal an elevated blood pressure. Physical examination revealed epigastric and right upper quadrant tenderness with positive Santizo sign. Differential diagnosis: ?Includes but is not limited to acute cholecystitis, acute choledocholithiasis, acute pancreatitis, gastritis, peptic ulcer disease, anemia, electrolyte abnormalities Patient was initially treated with the following: IV insert, normal saline x1 L, Toradol 15 mg IV, Zofran 4 mg IV Course: 11:05 My interpretation patient's laboratory evaluation as follows: CBC was normal. AST, ALT and alk-phos were elevated compared to 2 days prior at 196, 291 and 148. Total bilirubin elevated 7.4. Direct bilirubin elevated 4.4. Lipase was normal. Patient's presentation and laboratory findings are consistent with acute choledocholithiasis. I will discuss admission with the covering hospitalist, Dr. Da Silva and our covering plant senior manager, Dr. Braun. Unfortunately we do not have ERCP capabilities over the weekend and the plant senior manager felt that the patient should be transferred to a facility where ERCP would be available, in order to reduce the possibility of the patient developing acute cholangitis. She also recommended the patient be treated with IV antibiotics therefore I ordered Zosyn 4.5 g IV. I did discuss transfer with [facility] transfer line and waiting to your back from their plant senior manager. 12:41 I did discuss transfer with the GI provider, Dr. Vamsi Whitfield at [facility] and the provider stated that they do not have a bed at this time. He also stated that they would not be able to do an ERCP on this patient until Wednesday of next week. 13:31 I did discuss the patient's presentation and findings with the [place] transfer line. [facility] did not have the capability of doing ERCP over the weekend however [facility] does have the capability and the patient was accepted as an ED to ED transfer with the accepting attending physician being Dr. Watt. Patient states his pain is improved however he still has right upper quadrant tenderness with a positive Santizo sign The patient did have a right upper quadrant ultrasound but the official radiology report is pending. Patient may have a stone in the neck of the gallbladder that does not move, common bile duct was 4 mm in size and common bile duct does not appear to be dilated. The patient will be transferred via BLS ambulance to [place] [facility] [place]. Admission/Observation Consideration of admission/observation: Escalation of care including admission/observation considered (Yes) Lab Data MDM Lab Attestation statement: I reviewed the patient's lab results. 04/08/24 08:49 04/08/24 08:49 Labs: Lab Results 04/08/24 Range/Units 08:49 WBC 6.7 (4.8-10.8) X10*3/uL RBC 4.92 (4.60-5.80) X10*6/uL Hgb 15.4 (14.0-18.0) g/dl Hct 44.1 (42.0-52.0) % MCV 89.6 (80.0-98.0) fL MCH 31.3 (27.0-33.0) pg MCHC 34.9 (31.0-36.0) g/dl RDW 13.0 (11.0-16.0) % Plt Count 223 (160-400) X10*3/uL MPV 10.1 (9.4-12.4) fL Immature Gran % (Auto) 0.4 (0.0-0.4) % Neut % (Auto) 76.8 H (45-73) % Lymph % (Auto) 12.0 L (20-40) % [place] % (Auto) 9.3 (2-11) % Eos % (Auto) 0.6 (0-4) % Baso % (Auto) 0.9 (0-2) % Lymph # (Auto) 0.8 L (1.2-4.9) X10*3/uL [place] # (Auto) 0.6 (0.1-1.2) X10*3/uL Eos # (Auto) 0.0 (0.0-0.4) X10*3/uL Baso # (Auto) 0.1 (0.0-0.2) X10*3/uL Abs Immat Gran (auto) 0.03 (0.00-0.03) X10*3/uL Absolute Neuts (auto) 5.1 (2.0-8.3) x10*3/uL Absolute Nucleated RBC 0.000 (0.0-0.012) X10*3/uL Nucleated RBC % (auto) 0.0 (0.0-0.2) /100WBC Sodium 140 (135-145) mmol/L Potassium 4.3 (3.3-5.1) mmol/L Chloride 104 (96-108) mmol/L Carbon Dioxide 27 (22-29) mmol/L Anion Gap 13 (12-20) BUN 13 (9-16) mg/dL Creatinine 0.86 (0.5-1.4) mg/dL Estim Creat Clear Calc 125.9 Estimated GFR > 60 Random Glucose 105 (60-115) mg/dL Calcium 9.7 (8.4-10.2) mg/dL Total Bilirubin 7.4 H (0.0-1.0) mg/dL Direct Bilirubin 4.4 H (0.0-0.5) mg/dL AST 196 H (5-37) U/L ALT 291 H (0-40) U/L Alkaline Phosphatase 148 H (39-117) U/L Total Protein 7.6 (6.5-8.0) g/dL Albumin 4.4 (3.5-5.0) g/dL Lipase 41 (8-78) U/L Independent Interpretation I performed an independent interpretation of an: EKG Interpretation: My independent interpretation patient's 12 EKG done at 00:29 hours is as follows: Sinus tachycardia with a rate of 104, normal MD interval, QRS duration QTC interval, no ST segment elevation, no ST segment depression, inverted T-wave in lead 3, no PACs, no PVCs Radiology Impression Discussion of test interpretation with radiology: I have reviewed the radiologist's reading. Radiologist Impression: CT abdomen pelvis w IV con FINDINGS: LUNG BASES: Focal linear groundglass opacity in the right middle lobe may reflect atelectasis versus focal infectious/inflammatory process. LIVER, GALLBLADDER, AND BILIARY TREE: Mild ataxia ptosis. No focal hepatic lesions or intrahepatic biliary ductal dilatation. The gallbladder is unremarkable with no evidence of radiopaque gallstones, gallbladder wall thickening, or obvious pericholecystic inflammatory changes. PANCREAS: Unremarkable. SPLEEN: Unremarkable. ADRENAL GLANDS: Unremarkable. KIDNEYS AND URETERS: The kidneys are normal in size, shape, and attenuation. No hydronephrosis, hydroureter, or calculi seen. No perinephric stranding. BLADDER: Unremarkable. GASTROINTESTINAL TRACT: The small and large bowel are unremarkable. ABDOMINAL WALL: Tiny umbilical hernia. LYMPH NODES: Normal. VASCULAR: Unremarkable. PELVIC VISCERA: Unremarkable. OSSEOUS STRUCTURES: Mild spondylitic changes in the spine. IMPRESSION: 1. No acute abnormality in the abdomen or pelvis. 2. Focal linear groundglass opacity in the right middle lobe may reflect atelectasis versus focal mild infectious/inflammatory process. Fleischner guidelines were followed. Dictated By: Chase Walls MD Medications Administered Discontinued Medications Generic Name Dose Route Start Last Admin Trade Name Freq PRN Reason Stop Dose Admin Sodium Chloride 1,000 mls @ 999 mls/hr 04/08/24 10:49 04/08/24 12:55 Ns IV 04/08/24 11:49 Infused .Q1H1M STA Infusion Piperacillin Sod/Tazobactam 100 mls @ 200 mls/hr 04/08/24 11:54 04/08/24 12:55 Sod 4.5 gm/ Sodium Chloride IV 04/08/24 12:23 Infused ONCE ONE Infusion Iohexol 100 ml 04/08/24 10:52 04/08/24 10:52 Iohexol 350 Mg/Ml 100 Ml Infus..Btl IV 04/08/24 10:53 100 ml ONCE ONE Administration Ketorolac Tromethamine 15 mg 04/08/24 10:49 04/08/24 11:29 Ketorolac Tromethamine 15 Mg/Ml Vial IVPUSH 04/08/24 10:50 15 mg ONCE STA Administration Ondansetron HCl 4 mg 04/08/24 10:49 04/08/24 11:27 Ondansetron Hcl 4 Mg/2 Ml Vial IVPUSH 04/08/24 10:50 4 mg ONCE ONE Administration Critical Care Time Critical Care Time Critical Care Time: Yes Total Critical Care Time: 35 Attestation: Critical Care: The patient was critically ill with a high probability of imminent or life threatening deterioration. I spent greater than 30 minutes of discontinuous time evaluating the patient,delivering critical care at the bedside, discussing and evaluating pertinent data with consultants. Critical care time does not include time spent performing separately billable procedures or teaching. Total time spent performing critical care was 35 minutes. Discharge Plan Discharge Clinical Impression: Abdominal pain, Choledocholithiasis, Cholelithiasis, Biliary obstruction Patient Disposition: [facility] Transfer Details: [facility] Prescriptions: No Action pantoprazole [Protonix] 40 mg tablet,delayed release (DR/EC) 40 mg PO DAILY Qty: 20 0RF ondansetron 4 mg tablet,disintegrating 4 mg PO Q6-8H PRN (Reason: nausea and vomiting) Qty: 7 0RF losartan-hydrochlorothiazide 50-12.5 mg tablet 1 tab PO DAILY Qty: 30 0RF triamcinolone acetonide 0.1 % cream 1 appl topical DAILY PRN (Reason: rash) Qty: 15 0RF Rx Instructions: Apply to affected area PRN; do not use for more than 2 weeks Print Language: Burmese
--- NOTE | 2024-04-08 10:32 | PC.NURSE ---
lab called to add on lipase
[2024-04-08 10:43] LABS: Lipase 41 U/L (8-78)
[2024-04-08 10:49] VITALS: BP 156/101; PULSE 87; RESP 16; TEMP 37.1; O2SAT 98
[2024-04-08] MEDS: iohexoL 350 MG/ML 100 ML INFUS..BTL IV (10:52)
--- NOTE | 2024-04-08 11:24 | MHC.EDTECH ---
EKG ordered at 1046. Spoke with provider since EKG was previously completed at 0829. Provider said no need to repeat.
[2024-04-08] MEDS: ondansetron HCL 4 MG/2 ML VIAL IVPUSH (11:27)
[2024-04-08] MEDS: 0.9 % Sodium Chloride 1,000 ML 999 ML IV (11:27)
[2024-04-08] MEDS: Ketorolac Tromethamine 15 MG/ML VIAL IVPUSH (11:29)
[2024-04-08] MEDS: Piperacillin Sodium/Tazobactam 4.5 GM in 0.9 % Sodium Chloride 100 ML IV (12:11)
--- NOTE | 2024-04-08 13:25 | PC.NURSE ---
report called and given to charge master analyst Aubrey at [facility]. patient to be transferred BLS to ED
[2024-04-08 14:01] VITALS: BP 133/86; PULSE 72; RESP 18; TEMP 36.9; O2SAT 95
[2024-04-08 15:44] VITALS: BP 133/86; PULSE 72; RESP 18; TEMP 36.9; O2SAT 95
== END 2024-04-08 15:44 | disposition short-term general hospital (02) ==
PROVIDERS: Emergency Provider Emergency Medicine Emergency Medical Services
DX: K80.20 Calculus of gallbladder without cholecystitis without obstruction (principal); K80.51 Calculus of bile duct without cholangitis or cholecystitis with obstruction; R10.13 Epigastric pain; R10.11 Right upper quadrant pain; F95.2 Tourette's disorder
CPT/HCPCS: 36415; 74177; 76705; 80048; 80076; 83690; 85025; 93005; 96361; 96365; 96375; 99285; J1885; J2405; J2543; Q9967

== ENCOUNTER 2024-04-12 09:15 | Outpatient (AMB) | payer OTHER, SELFPAY ==
[2024-04-12 09:16] VITALS: BP 118/90; PULSE 85; O2SAT 98; BMI 35.3
--- NOTE | 2024-04-12 09:16 | A.OFFPC_ITS ---
Vital Signs 04/12/24 09:16 Height 5 ft 8 in Weight 232 lb BMI 35.3 BP 118/90 H Blood Pressure Location Lt brachial Position Sitting Pulse 85 Pulse Source Pulse Oximeter Pulse Oximetry (%) 98 Oxygen Delivery Method Room Air Intake Visit Reasons: [facility] 04/10 Gallbladder attack Intake Note: Patient is here for hospital discharge follow up. Patient was discharged from [facility] and transferred to [facility]. D/c 04/10/24 [employer] Required: No Allergies No Known Allergies [No Known Allergies*] Allergy (Verified 04/12/24 09:18) Medication List - Last Reconciled 04/12/24 by Chata Santiago PA-C losartan-hydrochlorothiazide 50-12.5 mg 1 tab PO DAILY ondansetron 4 mg PO Q6-8H PRN pantoprazole (Protonix) 40 mg PO DAILY triamcinolone acetonide 0.1% 1 appl topical DAILY PRN Tobacco use date assessed: 02/03/24 Dental Screening Dental Screen Date: 02/03/24 HPI [facility] 04/10 Gallbladder attack HPI Details 48-year-old male with past medical histo ry of severe obstructive sleep apnea, GERD and hypertension last seen January 2024 coming in for hospital follow up. In review of the notes, patient was seen in [facility] ED 04/08/2024 for right upper quadrant and epigastric pain patient was diagnosed with choledocholithiasis started on IV Zosyn and transferred to [facility] for further management and ERCP. Upon arrival at [facility] the gallstone had passed and was no longer visible, pain had subsided and labs had normalized. Today he tells us he has been feeling generally well. He has been tolerating food without any abdominal pain, nausea, vomiting. He has been working with his insurance for coordination of cholecystectomy. He has not currently have a surgeon but was recommended at [facility] to undergo cholecystectomy due to gallstones. [facility] Surgical History History of appendectomy Family History Paternal Grandfather Lung cancer Colon cancer Father Hypertension Social History Housing: Apartment Patient Tobacco Use Status: Never used Tobacco e-Cigarette/Vaping Use: Never Used service: No Current occupational status: employed Cognitive needs: No Hearing needs: No Vision needs: No Questionnaire Thrive Questionnaire Date Thrive assessed: 02/03/24 Are you currently unemployed and looking for a job?: No AUDIT C Alcohol Use Questionnaire (AUDIT-C) 1. How often do you have a drink containing alcohol?: 2-4 times a month 2. How many drinks containing alcohol do you have on a typical day when you are drinking?: 3 or 4 3. How often do you have six or more drinks on one occasion?: Less than monthly Total Score: 4 TRISTIAN-7 AMB Questionnaire TRISTIAN-7 Date TRISTIAN - 7 assessed: 02/03/24 Source: Developed by Drs. Chase Márquez, Summer Aburto, Sean Arshad and colleagues, with an educational randy from [employer]. Review of Systems Const Denies body aches, Denies chills and Denies fever(s) Eyes Reports no additional complaints ENT Reports no additional complaints Card Denies chest pain and Denies dyspnea Resp Denies dyspnea GI Denies abdominal pain, Denies change in stool character, Denies diarrhea, Denies nausea and Denies vomiting Reports no additional complaints Musc Reports no additional complaints Skin/Breast Reports system reviewed and no additional complaints, except as documented Physical exam (Primary Care) Vital Signs: Last Vital Signs Pulse 85 04/12/24 09:16 BP 118/90 H 04/12/24 09:16 Pulse Ox 98 04/12/24 09:16 Oxygen Delivery Method Room Air 04/12/24 09:16 BMI result Body Mass Index 35.3 Tobacco/Smoking Status: Tobacco use Status Tobacco use date assessed 02/03/24 04/12/24 09:19 Patient Tobacco Use Status Never used Tobacco 04/12/24 09:19 e-Cigarette/Vaping Use Never Used 04/12/24 09:19 Thrive Assessment: Date of Thrive Assessment Date Thrive assessed 02/03/24 04/12/24 09:19 Const General: cooperative, healthy appearing, comfortable and no acute distress Orientation/consciousness: patient oriented x3 HENMT Head: Yes normocephalic Ears: hearing grossly normal bilaterally General nose exam: Normal external nose present Eyes General: appearance normal, both eyes and all related structures Conjunctivae: conjunctivae normal Neck Neck: Yes full ROM and Yes no lymphadenopathy Resp Effort & Inspection: normal respiratory effort Auscultation: clear to auscultation bilaterally, no crackles, no rales, no rhonchi and no wheezes Cardio Rate: regular rate Rhythm: regular rhythm GI Inspection: Yes normal to inspection Palpation (GI): Soft to palpation, not firm, nontender, no guarding, not rigid and no masses Skin General skin exam: no rashes or lesions noted Neuro General: patient oriented x3 Gait exam (Neuro): Normal gait present Extrem General: Yes normal to inspection, Yes full ROM and No edema Psych Affect: normal affect Attitude: cooperative Insight: Good insight present (Psych) Judgement: Good judgement present (Psych) Coding Level of Care Code Est Pt Level 3 (38500) Diagnoses Choledocholithiasis K80.50 Assessment & Plan Assessment & Plan (1) Choledocholithiasis: Code(s): K80.50 - Calculus of bile duct without cholangitis or cholecystitis without obstruction Category: Medical Plan: Patient was found to have choledocholithiasis causing right upper quadrant abdominal pain and passed spontaneously in route to [facility]. Ordered for updated blood work to ensure downtrend of liver function tests. Also referred to General surgery for consultation for possible cholecystectomy. Advised patient in the meantime to limit fatty foods and monitor for symptoms. Plan This note was constructed using voice recognition software. While every effort has been made to ensure accuracy and floral arranger, still areas may have been included sometimes these areas may affect the content or meeting of the given symptoms. Total time spent caring for the patient today was 30 minutes. This includes time spent before the visit reviewing the chart, time spent during the visit, and time spent after the visit and documentation. Orders: Orders Comprehensive Met. Panel Today Z00.00 - Encounter for general adult medical examination without abnormal findings Comprehensive Met. Panel 2 Months Z00.00 - Encounter for general adult medical examination without abnormal findings Referrals General Surgery Referral K80.50 - Calculus of bile duct without cholangitis or cholecystitis without obstruction Medications: On Hold losartan-hydrochlorothiazide 50-12.5 mg Hold Comment: Doctor's Order 1 tab PO DAILY 30 tabs 2RF
== END 2024-04-12 09:56 | disposition home or self-care (01) ==
DX: K80.50 Calculus of bile duct without cholangitis or cholecystitis without obstruction (principal)

== ENCOUNTER 2024-04-21 06:42 | Outpatient (REF) | payer OTHER, SELFPAY ==
[2024-04-21 08:14] LABS: Alanine Aminotransferase 59 U/L (0-40); Albumin Level 4.4 g/dL (3.5-5.0); Alkaline Phosphatase 84 U/L (39-117); Anion Gap 11 (12-20); Aspartate Amino Transferase 33 U/L (5-37); Bilirubin Total 1.3 mg/dL (0.0-1.0); Blood Urea Nitrogen 15 mg/dL (9-16); Calcium 9.6 mg/dL (8.4-10.2); Carbon Dioxide 31 mmol/L (22-29); Chloride 103 mmol/L (96-108); Estimated Glomerular Filt Rate > 60; Glucose Random 104 mg/dL (60-115); Potassium 4.1 mmol/L (3.3-5.1); Sodium 141 mmol/L (135-145); Total Protein 7.3 g/dL (6.5-8.0)
== END 2024-04-21 06:43 | disposition home or self-care (01) ==
LOC: HO.LAB 06:42
DX: Z00.00 Encounter for general adult medical examination without abnormal findings (principal)
CPT/HCPCS: 36415; 80053

== ENCOUNTER 2024-04-25 08:36 | Outpatient (AMB) | payer OTHER, SELFPAY ==
--- NOTE | 2024-04-25 08:45 | MHC.OFFVIS ---
Vital Signs 04/25/24 08:47 Height 5 ft 8 in Weight 239 lb BMI 36.3 BP 155/86 H Blood Pressure Location Rt brachial Position Sitting Pulse 74 Intake Visit Reasons: Cholecystitis Intake Note: Patient referred by pcp Chata Santiago PA-C for cholecystitis. Patient c/o: denies abdominal pain, diarrhea, constipation, nausea. Abd US and CT: 04-08-2024. Human Resources Compliance Manager Required: No Allergies No Known Allergies [No Known Allergies*] Allergy (Verified 04/25/24 08:46) HPI Comments Details: Patient presents status post an intricate and convoluted story of cholelithiasis with cholangitis. His complaints were of upper abdominal and right upper quadrant pain. Patient had 2 ER visits here with the diagnosis and was eventually transferred to [facility] for ERCP which was not available on the weekend he presented to the ER at this facility.. Instead he had an MRCP at [facility] which demonstrated that he passed the stone. In The meantime, patient's hyperbilirubinemia , which was quite significant, has progressively improved. Most recent bilirubin level was 1.3. Patient is currently tolerating a diet. Having regular bowel habits. Abdominal symptoms have resolved. Patient presents here because of concern of recurrence of his cholangitis and possible development of other issues including gallstone pancreatitis and wished to have his gallbladder removed. He has never had such an episode before. Chart was reviewed and patient evaluated. Ultrasound of abdomen demonstrates cholelithiasis [facility] Surgical History History of appendectomy Family History Paternal Grandfather Lung cancer Colon cancer Father Hypertension Social History Housing: Apartment Patient Tobacco Use Status: Never used Tobacco e-Cigarette/Vaping Use: Never Used service: No Current occupational status: employed Cognitive needs: No Hearing needs: No Vision needs: No Physical Exam Vital Signs: Last Vital Signs Pulse 74 04/25/24 08:47 BP 155/86 H 04/25/24 08:47 BMI result Body Mass Index 36.3 Eyes Other: Patient is minimally icteric. He said this is markedly improved Chest Other: Chest breath sounds bilaterally, HS 1 in 2 GI Other: Abdomen corpulent, soft, benign Assessment & Plan Assessment & Plan (1) Choledocholithiasis: Code(s): K80.50 - Calculus of bile duct without cholangitis or cholecystitis without obstruction Category: Surgical (2) History of cholangitis: Code(s): Z87.19 - Personal history of other diseases of the digestive system Category: Surgical Plan Risks, benefits, alternatives laparoscopic possible open cholecystectomy reviewed with the patient and included but not limited to bleeding, infection, recurrence, numbness, pain, scarring, bowel or bile duct injury or leak. Possibility of also performed cholangiogram was reviewed with the patient. All questions answered. Arrangements made for this. Coding Level of Care Code New Pt Level 5 (21517) Diagnoses Choledocholithiasis K80.50 History of cholangitis Z87.19
[2024-04-25 08:47] VITALS: BP 155/86; PULSE 74; BMI 36.3
== END 2024-04-25 09:30 | disposition home or self-care (01) ==
PROVIDERS: Visit Provider Surgery
DX: K80.50 Calculus of bile duct without cholangitis or cholecystitis without obstruction (principal); Z87.19 Personal history of other diseases of the digestive system
CPT/HCPCS: 99204

== ENCOUNTER → 2024-04-25 08:36 | Outpatient (BNVA) | payer OTHER, SELFPAY | PROVIDERS: Visit Provider Surgery ==

== ENCOUNTER 2024-06-14 08:52 | Outpatient (AMB) | payer OTHER, SELFPAY ==
--- NOTE | 2024-06-14 09:05 | MHC.PC.OV ---
Vital Signs 06/14/24 09:06 06/14/24 09:23 Height 5 ft 8 in Weight 237 lb BMI 36.0 BP 134/98 H 138/100 H Blood Pressure Location Lt brachial Rt brachial Position Sitting Pulse 99 Pulse Source Pulse Oximeter Pulse Oximetry (%) 96 Oxygen Delivery Method Room Air Intake Visit Reasons: f/u HTN Intake Note: Patient here for a follow up HTN Director Payer Required: No Accompanied by: Self / Same As Patient Allergies No Known Allergies [No Known Allergies*] Allergy (Verified 06/14/24 09:07) Medication List - Last Reconciled 06/14/24 by Chata Santiago PA-C losartan-hydrochlorothiazide 50-12.5 mg 1 tab PO DAILY triamcinolone acetonide 0.1% 1 appl topical DAILY PRN Tobacco use date assessed: 02/03/24 Dental Screening Dental Screen Date: 06/14/24 Did you have a dental visit in the last 12 months?: No Did you have a dental problem in the last 6 months where you did not have access to dental care?: No Was dental information given to patient?: Patient has dentist HPI f/u HTN HPI Details 48-year-old male with past medical history of obstructive sleep apnea, GERD, hypertension last seen April 2024 coming in for follow up on hypertension. Patient states he has been taking his blood pressures at home typically 160s over 100s and has been consistently this high in the last several weeks. Denies any headaches, chest pain, shortness of breath or leg swelling. He has no other concerns today. He is scheduled to have a laparoscopic cholecystectomy with Dr. Calderon 06/23/2024. [facility] Medical History (Updated 06/14/24 @ 09:24 by Chata Santiago PA-C) Hypertension Surgical History History of appendectomy Family History (Updated 06/14/24 @ 09:08 by HOLLAND Dowell) Paternal Grandfather Lung cancer Colon cancer Father Hypertension Social History (Updated 06/14/24 @ 09:08 by HOLLAND Dowell) Housing: Apartment Alcohol intake: never Patient Tobacco Use Status: Never used Tobacco e-Cigarette/Vaping Use: Never Used Second Hand Smoke Exposure: No service: No Current occupational status: employed Current occupational exposures/hazards: No Cognitive needs: No Hearing needs: No Vision needs: No Questionnaire Thrive Questionnaire Date Thrive assessed: 02/03/24 Are you currently unemployed and looking for a job?: No TRISTIAN-7 AMB Questionnaire TRISTIAN-7 Date TRISTIAN - 7 assessed: 02/03/24 Source: Developed by Drs. Chase Márquez, Summer Aburto, Sean Arshad and colleagues, with an educational randy from [employer]. Review of Systems Const Denies body aches, Denies chills, Denies fever(s), Denies headache(s) and Denies poor appetite Eyes Reports no additional complaints ENT Denies dizziness and Denies headache(s) Card Denies chest pain, Denies syncope, Denies edema, Denies irregular heart rhythm, Denies lightheadedness and Denies dyspnea Resp Denies cough and Denies dyspnea GI Denies abdominal pain, Denies constipation, Denies diarrhea, Denies nausea and Denies vomiting Reports no additional complaints Musc Reports no additional complaints and Denies abnormal gait Skin/Breast Reports system reviewed and no additional complaints, except as documented Neuro Denies abnormal gait, Denies dizziness, Denies syncope and Denies headache(s) Psych Reports no additional complaints Physical exam (Primary Care) Vital Signs: Last Vital Signs Pulse 99 06/14/24 09:06 BP 134/98 H 06/14/24 09:06 Pulse Ox 96 06/14/24 09:06 Oxygen Delivery Method Room Air 06/14/24 09:06 BMI result Body Mass Index 36.0 Tobacco/Smoking Status: Tobacco use Status Tobacco use date assessed 02/03/24 06/14/24 09:10 Patient Tobacco Use Status Never used Tobacco 06/14/24 09:10 e-Cigarette/Vaping Use Never Used 06/14/24 09:10 Thrive Assessment: Date of Thrive Assessment Date Thrive assessed 02/03/24 06/14/24 09:10 Const General: cooperative, healthy appearing, comfortable and no acute distress Orientation/consciousness: patient oriented x3 HENMT Head: Yes normocephalic Ears: hearing grossly normal bilaterally General nose exam: Normal external nose present Eyes General: appearance normal, both eyes and all related structures Conjunctivae: conjunctivae normal Neck Neck: Yes full ROM and Yes no lymphadenopathy Resp Effort & Inspection: normal respiratory effort Auscultation: clear to auscultation bilaterally, no crackles, no rales, no rhonchi and no wheezes Cardio Rate: regular rate Rhythm: regular rhythm Skin General skin exam: no rashes or lesions noted Neuro General: patient oriented x3 Gait exam (Neuro): Normal gait present Extrem General: Yes normal to inspection, Yes full ROM and No edema Psych Affect: normal affect Attitude: cooperative Insight: Good insight present (Psych) Judgement: Good judgement present (Psych) Office Procedures Flu Questionnaire Does the patient have a severe egg allergy?: No Immunizations Fluarix Triv [id number] (PF) 45 mcg (15 mcg x 3)/0.5 mL IM syringe Performing Provider: Chata Santiago PA-C [facility] Documented (not given) by: HOLLAND Dowell on 06/14/24 09:11 Reason Not Given: Patient Refused Coding Level of Care Code Est Pt Level 4 (75975) Diagnoses Hypertension I10 Choledocholithiasis K80.50 Assessment & Plan Assessment & Plan (1) Hypertension: Code(s): I10 - Essential (primary) hypertension Category: Medical Plan: Patient not presently on blood pressure medications was previously on losartan hydrochlorothiazide combo pill which was held after he was discharged from the hospital. Blood pressure was initially normalized however has been increasing steadily and blood pressures at home have also been elevated. We will restart on losartan 25 mg and follow up in 6 weeks. Advised patient to continue taking blood pressures at home and if they are persistently elevated to reach out to the office. Avoid salt intake and encourage healthy diet and regular exercise. (2) Choledocholithiasis: Code(s): K80.50 - Calculus of bile duct without cholangitis or cholecystitis without obstruction Category: Surgical Plan: Patient is scheduled to have laparoscopic cholecystectomy 06/23/[address] Calderon. Discussed with patient that his blood pressure has been under good control prior to the procedure or procedure may be delayed. Plan This note was constructed using voice recognition software. While every effort has been made to ensure accuracy and [place], still areas may have been included sometimes these areas may affect the content or meeting of the given symptoms. Total time spent caring for the patient today was 20 minutes. This includes time spent before the visit reviewing the chart, time spent during the visit, and time spent after the visit and documentation. Orders: Orders Influenza [id number] Immunization Today Z23 - Encounter for immunization Medications: New losartan 25 mg PO DAILY 30 tabs 2RF Discontinued losartan-hydrochlorothiazide 50-12.5 mg Discontinued Reason: Patient no longer taking 1 tab PO DAILY 30 tabs 2RF
[2024-06-14 09:06] VITALS: BP 134/98; PULSE 99; O2SAT 96; BMI 36.0
[2024-06-14 09:23] VITALS: BP 138/100
== END 2024-06-14 09:37 | disposition home or self-care (01) ==
DX: I10 Essential (primary) hypertension (principal); K80.50 Calculus of bile duct without cholangitis or cholecystitis without obstruction; Z23 Encounter for immunization

== ENCOUNTER → 2024-06-14 08:52 | Outpatient (BNVA) | payer OTHER, SELFPAY | DX: I10 Essential (primary) hypertension (principal); K80.50 Calculus of bile duct without cholangitis or cholecystitis without obstruction; Z28.21 Immunization not carried out because of patient refusal | CPT/HCPCS: 90471 ==

== ENCOUNTER 2024-06-23 06:56 | Day surgery (SDC) | payer OTHER, SELFPAY ==
[2024-06-21 10:00] VITALS: BMI 36.0
--- NOTE | 2024-06-22 11:32 | MHC.SHP ---
Pre-Procedural Eval Section A - 24 Hr Update-Section A only Date of Service: 06/23/24 The patient is an INPATIENT: No Changes since office visit: No Cold of Flu in the past 2 weeks, No New Medical Problems, No Changes in Medication and No Patient answered all questions Section B - Complete if H&P > 30 days Chief Complaint: Calculus of bile duct without cholangitis Allergies: Allergies Allergy/AdvReac Type Severity Reaction Status Date / Time No Known Allergies Allergy Verified 06/14/24 09:07 [No Known Allergies*] Review of Systems Sugical H&P ROS: Negative: Constitution, Cardiovascular, Respiratory, Neurological, Psychiatric, Hem-Onc, Allergic/Immunologic, Gastrointestinal, Genitourinary, Musculoskeletal, Integumentary, Endocrine and Eyes/Ears/Nose/Throat Exam Surgical H&P Exam: Normal: HEENT, Normal: Heart, Normal: Lungs, Normal: Extremities, Normal: Abdomen, Normal: Skin and Normal: Neurological Plan I have reviewed the history and physical and performed a pertinent physical examination on my patient. No changes have occurred unless specified. Time Spent With Patient Time: Total time managing care of this patient today ____ minutes.
[2024-06-23] VITALS (9 sets, daily range): BP systolic 130–165; BP diastolic 89–110; PULSE 72–92; RESP 16–20; TEMP 36.3–37.2; O2SAT 93–97; BMI 36.9
[2024-06-23] MEDS: Lactated Ringers 1,000 ML 100 ML IVCONT (07:36)
--- NOTE | 2024-06-23 08:12 | P.CONAN_ITS ---
Documented by User: Katie Moreira NP 06/21/24 12:47 HPI - Anesthesia Eval Consult details Narrative: 48yo M for Cholecystectomy Laparoscopic,possible open PMFSH Active Problems Active Problems: All Active Problems History of cholangitis (Acute) Choledocholithiasis (Acute) Severe obstructive sleep apnea (Acute) Annual physical exam (Acute) Fatigue (Acute) Rash (Acute) Tourette disorder (Acute) Past Medical History Medical History (Updated 06/21/24 @ 09:57 by Linda Reveles RN) Tourette disorder Sleep apnea Hypertension Family History Family History (Updated 06/14/24 @ 09:08 by HOLLAND Dowell) Paternal Grandfather Lung cancer Colon cancer Father Hypertension Surgical History Surgical History (Updated 06/21/24 @ 10:03 by Linda Reveles RN) Hx of excision of mass History of appendectomy Social History Social History (Updated 06/14/24 @ 09:08 by HOLLAND Dowell) Housing: Apartment Alcohol intake: never Patient Tobacco Use Status: Never used Tobacco e-Cigarette/Vaping Use: Never Used Second Hand Smoke Exposure: No Use of substances other than those prescribed or required for medical reasons: No Are you DNR?: No Advance Directives: No Advance Directives Information Provided: Yes Nutrition Risks: No Nutritional Risk Poor oral hygiene: No service: No Current occupational status: employed Current occupational exposures/hazards: No Cognitive needs: No Hearing needs: No Vision needs: No Meds Allergies Allergy/AdvReac Type Severity Reaction Status Date / Time No Known Allergies Allergy Verified 06/14/24 09:07 [No Known Allergies*] Exam Height,Weight and Vital Signs: Height 5 ft 8 in Weight 107.501 kg Pertinent Lab Results Pertinent Lab Results: Laboratory Tests 04/08/24 04/21/24 08:49 06:55 WBC 6.7 Hgb 15.4 Hct 44.1 Plt Count 223 Sodium 141 Potassium 4.1 Chloride 103 Carbon Dioxide 31 H BUN 15 Creatinine 0.91 Narrative Narrative: EKG 03/2024 Vent. Rate : 104 BPM Atrial Rate : 104 BPM P-R Int : 136 ms QRS Dur : 096 ms QT Int : 360 ms P-R-T Axes : 001 -36 -04 degrees QTc Int : 473 ms Sinus tachycardia Left axis deviation Abnormal ECG When compared with ECG of 26-SEP-2024 18:08, No significant change was found Assessment and Plan Assessment Anesthesia Assessment: Chart Reviewed Documented by User: Roxanne Graham DO 06/23/24 08:12 [facility] Past Medical History Medical History (Updated 06/21/24 @ 09:57 by Linda Reveles RN) Tourette disorder Sleep apnea Hypertension Family History Family History (Updated 06/14/24 @ 09:08 by HOLLAND Dowell) Paternal Grandfather Lung cancer Colon cancer Father Hypertension Family history of problems with anesthesia: No Surgical History Surgical History (Updated 06/21/24 @ 10:03 by Linda Reveles RN) Hx of excision of mass History of appendectomy History of Problems with Anesthesia: No Social History Social History (Updated 06/14/24 @ 09:08 by HOLLAND Dowell) Housing: Apartment Alcohol intake: never Patient Tobacco Use Status: Never used Tobacco e-Cigarette/Vaping Use: Never Used Second Hand Smoke Exposure: No Use of substances other than those prescribed or required for medical reasons: No Are you DNR?: No Advance Directives: No Advance Directives Information Provided: Yes Nutrition Risks: No Nutritional Risk Poor oral hygiene: No service: No Current occupational status: employed Current occupational exposures/hazards: No Cognitive needs: No Hearing needs: No Vision needs: No Meds Allergies Allergy/AdvReac Type Severity Reaction Status Date / Time No Known Allergies Allergy Verified 06/14/24 09:07 [No Known Allergies*] Exam Exam Date and Time: 06/23/24 0802 Height,Weight and Vital Signs: Height 5 ft 8 in Weight 107.501 kg Height 5 ft 8 in Weight 110.223 kg Vital Signs Temperature 97.4 F 06/23/24 07:31 Pulse Rate 92 06/23/24 07:31 Respiratory Rate 16 06/23/24 07:31 Blood Pressure 147/91 H 06/23/24 07:31 Pulse Oximetry 95 06/23/24 07:31 Oxygen Delivery Method Room Air 06/23/24 07:31 Temperature 97.4 F 06/23/24 07:31 Pulse Rate 92 06/23/24 07:31 Respiratory Rate 16 06/23/24 07:31 Blood Pressure 147/91 H 06/23/24 07:31 Pulse Oximetry 95 06/23/24 07:31 Oxygen Delivery Method Room Air 06/23/24 07:31 Airway Mallampati Class: III TM Dist: >3cm Neck ROM: Full Loose/Missing/Broken Teeth: No (patient denies any loose or broken teeth) Heart: S1S2 Lungs: CTAB Assessment and Plan Assessment Anesthesia Assessment: Anesthesia Plan Discussed and Chart Reviewed Final Anesthetic Review Family History of Problems with Anesthesia: No History of Problems with Anesthesia: No NPO: Yes ASA Class: II Final Preanesthetic Review: No Changes in Pt Med Stat, Meds/Allgs Chart Reviewed, Consent Obtained/Reviewed and Anes Risks/Benef Reviewed Patient Risk: Low Procedure Risk: Low Anesthetic Plan Anesthetic Plan: GA and Agree w/ Assess. and Plan Disposition: Standard PACU
--- NOTE | 2024-06-23 09:16 | W.PM.OPN ---
Operative Note Operative Note Date of Service: 06/23/24 Narrative: Preoperative diagnosis: [] Symptomatic gallbladder Postop diagnosis: [] The same Procedure [] laparoscopic cholecystectomy Surgeon: [] Kvng Gauge Inspector: [] Deandra Type of Anesthesia: [] General Indication for surgery: [] Gallbladder with omental adhesions to it. Moderately intrahepatic gallbladder. Findings: [] Patient was brought to the operating room, placed on operative table supine position, after an adequate level of general anesthesia was induced, the patient's abdomen was prepped and draped in usual sterile fashion. Using a supraumbilical curvilinear incision, Guerra technique was used to insufflate abdominal cavity to 15 mm of CO2. Upper midline and right subcostal ports were placed under direct laparoscopic view, and the patient placed in reverse Trendelenburg position, and tilted to the left. Findings were as noted above. Gallbladder was grasped using laparoscopic graspers and retracted superiorly and laterally. Soft omental adhesions were swept off the gallbladder where the the hilum was approached. Cystic artery and cystic duct were each identified, circumferentially skeletonized, traced directly into the gallbladder, and critical view obtained. Each was clipped proximally x2, distally x1, and transected . The gallbladder which was moderately intrahepatic was then cauterized from the gallbladder fossa using Bovie. Specimen placed in an Endo-Catch bag, a retrieved through the umbilical port. Abdominal cavity was copiously irrigated and secured hemostasis. All ports removed under direct laparoscopic view. Wounds were closed in the following manner; umbilical wound is fascia reapproximated using interrupted 0 Vicryl sutures. Skin wounds were closed using subcuticular 4-0 Vicryl sutures followed by Steri-Strips and sterile dressings. Wounds were infiltrated 0.5% Marcaine/1% lidocaine at completion. Sponge, needle, and instrument counts reported correct. Patient tolerated the procedure well and emerged from anesthesia stable condition. EBL minimal
[2024-06-23] MEDS: oxyCODONE HCl Immed Release 5 MG TABLET PO (10:54)
== END 2024-06-23 11:35 | disposition home or self-care (01) ==
PROVIDERS: Visit Provider Surgery
PROC: 0FT44ZZ Resection of Gallbladder, Percutaneous Endoscopic Approach (ICD-10-PCS; CPT 47562; principal; 2024-06-23 08:40)
DX: K80.10 Calculus of gallbladder with chronic cholecystitis without obstruction (principal); Z87.19 Personal history of other diseases of the digestive system; K82.8 Other specified diseases of gallbladder; Q44.1 Other congenital malformations of gallbladder; I10 Essential (primary) hypertension; G47.33 Obstructive sleep apnea (adult) (pediatric); F95.2 Tourette's disorder; Z79.899 Other long term (current) drug therapy; Z98.890 Other specified postprocedural states
CPT/HCPCS: 47562; 88304; J0131; J0690; J1100; J1885; J2003; J2371; J2405; J2704; J3010

== ENCOUNTER → 2024-06-23 06:56 | Outpatient (BNV) | payer OTHER, SELFPAY | PROVIDERS: Visit Provider Surgery | DX: K82.8 Other specified diseases of gallbladder (principal) | CPT/HCPCS: 47562 ==

== ENCOUNTER 2024-07-04 09:10 | Outpatient (AMB) | payer OTHER, SELFPAY ==
--- NOTE | 2024-07-04 09:12 | MHC.OFFVIS ---
Intake Visit Reasons: s/p Lap chavez Intake Note: This patient presents for post-op assessment status post laparoscopic cholecystectomy. Pt c/o; reports no complaints at this time pertaining to surgery. [employer] Required: No Accompanied by: Self / Same As Patient Allergies No Known Allergies [No Known Allergies*] Allergy (Verified 07/04/24 09:13) HPI Comments Details: Patient was status post laparoscopic cholecystectomy he is doing well. Starting a diet. Having regular bowel habits. He is increasing his activity level. He is minimal incisional discomfort. He is not requiring narcotics. COUNT INCLUDES THE [facility] Medical History Tourette disorder Sleep apnea Hypertension Surgical History History of laparoscopic cholecystectomy (06/23/24) Hx of excision of mass History of appendectomy Family History Paternal Grandfather Lung cancer Colon cancer Father Hypertension Social History Housing: Apartment Alcohol intake: never Patient Tobacco Use Status: Never used Tobacco e-Cigarette/Vaping Use: Never Used Second Hand Smoke Exposure: No service: No Current occupational status: employed Current occupational exposures/hazards: No Cognitive needs: No Hearing needs: No Vision needs: No Physical Exam Eyes Other: Anicteric GI Other: Abdomen corpulent, soft, benign. All wounds clean dry and intact healing well Assessment & Plan Assessment & Plan (1) Status post laparoscopic cholecystectomy: Code(s): Z90.49 - Acquired absence of other specified parts of digestive tract Category: Medical Plan Patient was been given local instructions including avoiding strenuous activities next few weeks time and will otherwise follow-up p.r.n.. All questions answered. Coding Level of Care Code Global (96894) Diagnoses Status post laparoscopic cholecystectomy Z90.49
--- OUTSIDE RECORDS SUMMARY | 2024-07-04 09:12 | XMS_ITS ---
Author Name [facility] Organization Unknown Results Test Name/Text Value Interpretation Date Range Source DIFFERENTIAL TYPE AUTOMATED Normal [id number] [facility] PLATELET ESTIMATE ADEQUATE Normal [id number] [facility] PLATELET NO. BLD AUTO PLATELET CLUMPS Normal [id number] 150 - 450 [facility] NEUTROPHILS NFR BLD AUTO 72.6% Normal [id number] 44 - 74 [facility] BASOPHILS NFR BLD AUTO 0.6% Normal [id number] 0 - 2 [facility] MONOCYTES NFR BLD AUTO 9.8% Normal [id number] 2 - 12 [facility] MONOCYTES NO. BLD AUTO 0.8K/uL Normal [id number] 0 - 0.8 [facility] EOSINOPHIL NO. BLD AUTO 0.1K/uL Normal [id number] 0 - 0.5 [facility] BASOPHILS IN BLOOD BY AUTOMATED COUNT 0.1K/uL Normal [id number] 0 - 0.2 [facility] EOSINOPHIL NFR BLD AUTO 1.4% Normal [id number] 0 - 6 [facility] LYMPHOCYTES NFR BLD AUTO 15.6% Below low normal [id number] 20 - 48 [facility] NEUTROPHILS NO. BLD AUTO 6.1K/uL Normal [id number] 1.8 - 7.8 [facility] LYMPHOCYTES NO. BLD AUTO 1.3K/uL Normal [id number] 1 - 3.2 [facility] BLOOD BANK CMNT PATIENT-IMP Normal [id number] [facility] ABO+RH GP BLD Normal [id number] [facility] BLD GP AB SCN SERPL QL Normal [id number] [facility] PHOSPHATE SERPL MCNC 3.2mg/dL Normal [id number] 2.5 - 4.5 [facility] MAGNESIUM SERPL MCNC 2.1mg/dL Normal [id number] 1.7 - 2.8 [facility] BILIRUB DIRECT SERPL MCNC 0.7mg/dL Above high normal [id number] 0 - 0.2 [facility] CREAT SERPL MCNC 0.8mg/dL Normal [id number] 0.7 - 1.3 [facility] BILIRUB SERPL MCNC 2.6mg/dL Above high normal [id number] 0.3 - 1 [facility] AST SERPL CCNC 53U/L Above high normal [id number] 5 - 40 [facility] Glomerular filtration rate/1.73 sq M. predicted 109 Normal [id number] 60 - [facility] HCO3 SER SCNC 28mmol/L Normal [id number] 24 - 32 [facility] POTASSIUM SERPL SCNC 4mmol/L Normal [id number] 3.5 - 5.1 [facility] ANION GAP SERPL SCNC 10mmol/L Normal [id number] 5 - 14 [facility] PROT SERPL MCNC 7.4g/dL Normal [id number] 6.4 - 8.5 C [facility] CALCIUM SERPL MCNC 9.1mg/dL Normal [id number] 8.4 - 10 .2 [facility] ALP SERPL-CCNC 124U/L Above high normal [id number] 34 - 104 [facility] SODIUM SERPL SCNC 137mmol/L Normal [id number] 135 - 145 [facility] GLUCOSE SERPL MCNC 98mg/dL Normal [id number] 70 - 199 [facility] ALBUMIN SERPL BCG MCNC 4.2g/dL Normal [id number] 3.5 - 5 [facility] CHLORIDE SERPL SCNC 99mmol/L Normal [id number] 98 - 107 [facility] ALT SERPL CCNC 159U/L Above high normal [id number] 7 - 52 [facility] BUN SERPL MCNC 15mg/dL Normal [id number] 9 - 20 [facility] PT TIME PPP 12.5sec Normal [id number] 10.5 - 13.3 [facility] INR PPP 1 Normal [id number] 0.8 - 1.1 [facility] HCT VFR BLD AUTO 43.9% Normal [id number] 40 - 54 [facility] RDW RBC AUTO RTO 13.6% Normal [id number] 12.1 - 17. 7 [facility] RBC NO. BLD AUTO 4.82M/uL Normal [id number] 4.7 - 6 [facility] MCH RBC QN AUTO 31.5pg Normal [id number] 25 - 33 C [facility] MCHC RBC AUTO MCNC 34.6g/dL Normal [id number] 32 - 36 [facility] HGB BLD MCNC 15.2g/dL Normal [id number] 13.5 - 18 [facility] WBC NO. BLD AUTO 8.4K/uL Normal [id number] 4 - 10.5 [facility] MCV RBC AUTO 91.2fL Normal [id number] 78 - 100 [facility] BLOOD BANK CMNT PATIENT-IMP Normal [id number] [facility] ABO+RH GP BLD Normal [id number] [facility] ALBUMIN/GLOB SERPL MRTO 1.3 Normal [id number] [facility] ALP SERPL-CCNC 131U/L Above high normal [id number] 34 - 104 [facility] BILIRUB SERPL MCNC 4.2mg/dL Above high normal [id number] 0.3 - 1 [facility] AST SERPL CCNC 87U/L Above high normal [id number] 5 - 40 [facility] ALBUMIN SERPL BCG MCNC 4.2g/dL Normal [id number] 3.5 - 5 [facility] ALT SERPL CCNC 213U/L Above high normal [id number] 7 - 52 [facility] PROT SERPL MCNC 7.4g/dL Normal [id number] 6.4 - 8.5 C [facility] BILIRUB DIRECT SERPL MCNC 1.8mg/dL Above high normal [id number] 0 - 0.2 [facility] CREAT SERPL MCNC 0.9mg/dL Normal [id number] 0.7 - 1.3 [facility] SODIUM SERPL SCNC 139mmol/L Normal [id number] 135 - 145 [facility] GLUCOSE SERPL MCNC 78mg/dL Normal [id number] 70 - 199 [facility] Glomerular filtration rate/1.73 sq M. predicted 105 Normal [id number] 60 - [facility] CHLORIDE SERPL SCNC 102mmol/L Normal [id number] 98 - 107 [facility] HCO3 SER SCNC 23mmol/L Below low normal [id number] 24 - 3 2 [facility] POTASSIUM SERPL SCNC 4mmol/L Normal [id number] 3.5 - 5.1 [facility] ANION GAP SERPL SCNC 14mmol/L Normal [id number] 5 - 14 [facility] BUN SERPL MCNC 15mg/dL Normal [id number] 9 - 20 [facility] CALCIUM SERPL MCNC 9mg/dL Normal [id number] 8.4 - 10 .2 [facility] RBC NO. BLD AUTO 4.66M/uL Below low normal [id number] 4.7 - 6 [facility] MCH RBC QN AUTO 31.6pg Normal [id number] 25 - 33 C [facility] MCHC RBC AUTO MCNC 34.4g/dL Normal [id number] 32 - 36 [facility] HGB BLD MCNC 14.7g/dL Normal [id number] 13.5 - 18 [facility] WBC NO. BLD AUTO 6.6K/uL Normal [id number] 4 - 10.5 [facility] HCT VFR BLD AUTO 42.8% Normal [id number] 40 - 54 [facility] MCV RBC AUTO 91.9fL Normal [id number] 78 - 100 [facility] RDW RBC AUTO RTO 13.8% Normal [id number] 12.1 - 17. 7 [facility] PLATELET NO. BLD AUTO 180K/uL Normal [id number] 150 - 450 [facility] PMV BLD AUTO 8.7fL Normal [id number] 7.4 - 11.4 [facility] ALBUMIN SERPL BCG MCNC 4g/dL Normal [id number] 3.5 - 5 [facility] ALBUMIN SERPL BCG MCNC 3.5g/dL Normal [id number] 3.5 - 5 [facility] CALCIUM SERPL MCNC 8.3mg/dL Below low normal [id number] 8 .4 - 10.2 [facility] CREAT SERPL MCNC 0.9mg/dL Normal [id number] 0.7 - 1.3 [facility] SODIUM SERPL SCNC 140mmol/L Normal [id number] 135 - 145 [facility] GLUCOSE SERPL MCNC 84mg/dL Normal [id number] 70 - 199 [facility] Glomerular filtration rate/1.73 sq M. predicted 105 Normal [id number] 60 - [facility] CHLORIDE SERPL SCNC 104mmol/L Normal [id number] 98 - 107 [facility] HCO3 SER SCNC 26mmol/L Normal [id number] 24 - 32 [facility] POTASSIUM SERPL SCNC 3.9mmol/L Normal [id number] 3.5 - 5.1 [facility] ANION GAP SERPL SCNC 10mmol/L Normal [id number] 5 - 14 [facility] BUN SERPL MCNC 15mg/dL Normal [id number] 9 - 20 [facility] ALBUMIN/GLOB SERPL MRTO 1.6 Normal [id number] [facility] ALP SERPL-CCNC 134U/L Above high normal [id number] 34 - 104 [facility] BILIRUB SERPL MCNC 5.5mg/dL Above high normal [id number] 0.3 - 1 [facility] AST SERPL CCNC 137U/L Above high normal [id number] 5 - 40 [facility] ALBUMIN SERPL BCG MCNC 3.9g/dL Normal [id number] 3.5 - 5 [facility] ALT SERPL CCNC 238U/L Above high normal [id number] 7 - 52 [facility] PROT SERPL MCNC 6.4g/dL Normal [id number] 6.4 - 8.5 C [facility] BILIRUB DIRECT SERPL MCNC 2.5mg/dL Above high normal [id number] 0 - 0.2 [facility] BLOOD BANK CMNT PATIENT-IMP Normal [id number] [facility] ABO+RH GP BLD Normal [id number] [facility] BLD GP AB SCN SERPL QL Normal [id number] [facility] BILIRUB SERPL MCNC 5mg/dL Above high normal [id number] 0.3 - 1 [facility] BILIRUB DIRECT SERPL MCNC 1.1mg/dL Above high normal [id number] 0 - 0.2 [facility] CREAT SERPL MCNC 0.7mg/dL Normal [id number] 0.7 - 1.3 [facility] SODIUM SERPL SCNC 139mmol/L Normal [id number] 135 - 145 [facility] GLUCOSE SERPL MCNC 77mg/dL Normal [id number] 70 - 199 [facility] Glomerular filtration rate/1.73 sq M. predicted 114 Normal [id number] 60 - [facility] CHLORIDE SERPL SCNC 109mmol/L Above high normal [id number] 98 - 107 [facility] HCO3 SER SCNC 23mmol/L Below low normal [id number] 24 - 3 2 [facility] POTASSIUM SERPL SCNC 5.5mmol/L Above high normal [id number] 3.5 - 5.1 [facility] BUN SERPL MCNC 13mg/dL Normal [id number] 9 - 20 [facility] CALCIUM SERPL MCNC 6.9mg/dL Below low normal [id number] 8 .4 - 10.2 [facility] MAGNESIUM SERPL MCNC 1.9mg/dL Normal [id number] 1.7 - 2.8 [facility] AMYLASE SERPL CCNC 19U/L Below low normal [id number] 2 9 - 103 [facility] LIPASE SERPL CCNC 26U/L Normal [id number] 11 - 82 [facility] ALP SERPL-CCNC 109U/L Above high normal [id number] 34 - 104 [facility] AST SERPL CCNC 151U/L Above high normal [id number] 5 - 40 [facility] LDH SERPL L TO P CCNC 548U/L Above high normal [id number] 125 - 220 [facility] ALT SERPL CCNC 208U/L Above high normal [id number] 7 - 52 [facility] ANION GAP SERPL SCNC 7mmol/L Normal [id number] 5 - 14 [facility] PT TIME PPP 11.9sec Normal [id number] 10.5 - 13.3 [facility] INR PPP 1 Normal [id number] 0.8 - 1.1 [facility] DIFFERENTIAL TYPE AUTOMATED Normal [id number] [facility] NEUTROPHILS NFR BLD AUTO 70.4% Normal [id number] 44 - 74 [facility] BASOPHILS NFR BLD AUTO 1.1% Normal [id number] 0 - 2 [facility] MONOCYTES NFR BLD AUTO 9.7% Normal [id number] 2 - 12 [facility] HCT VFR BLD AUTO 41% Normal [id number] 40 - 54 [facility] MONOCYTES NO. BLD AUTO 0.6K/uL Normal [id number] 0 - 0.8 [facility] RDW RBC AUTO RTO 14.1% Normal [id number] 12.1 - 17. 7 [facility] PLATELET NO. BLD AUTO 175K/uL Normal [id number] 150 - 450 [facility] EOSINOPHIL NO. BLD AUTO 0.1K/uL Normal 0 - 0.5 [facility] RBC NO. BLD AUTO 4.41M/uL Below low normal [id number] 4.7 - 6 [facility] MCH RBC QN AUTO 31.6pg Normal [id number] 25 - 33 C [facility] MCHC RBC AUTO MCNC 34g/dL Normal [id number] 32 - 36 [facility] HGB BLD MCNC 13.9g/dL Normal 13.5 - 18 [facility] BASOPHILS IN BLOOD BY AUTOMATED COUNT 0.1K/uL Normal [id number] 0 - 0.2 [facility] WBC NO. BLD AUTO 5.7K/uL Normal [id number] 4 - 10.5 [facility] EOSINOPHIL NFR BLD AUTO 1.2% Normal [id number] 0 - 6 [facility] LYMPHOCYTES NFR BLD AUTO 17.6% Below low normal [id number] 20 - 48 [facility] MCV RBC AUTO 92.9fL Normal 78 - 100 [facility] NEUTROPHILS NO. BLD AUTO 4K/uL Normal [id number] 1.8 - 7.8 [facility] LYMPHOCYTES NO. BLD AUTO 1K/uL Normal [id number] 1 - 3.2 [facility] PMV BLD AUTO 8.8fL Normal [id number] 7.4 - 11.4 [facility] History of Medication Use Medication Directions Dispensed Refills Start Date End Date Stat gadoterate meglumine (DOTAREM) injection 10 mmol/20 mL 20 mL, Intravenous, IMG once as needed, contrast, Starting on 04/09/24 at 0317, For 1 dose, Radiology Contrast 04/12/2024 completed ketorolac (TORADOL) injection 15 mg 15 mg, Intravenous, Once, On 04/08/24 at 1730, For 1 dose 04/12/2024 completed pantoprazole (PROTONIX) 40 MG tablet 04/12/2024 active acetaminophen (TYLENOL) tablet 650 mg 650 mg, Oral, Every 6 hours PRN, mild pain (1-3), moderate pain (4-6), headaches, fever, Starting on 04/08/24 at 202204/12/2024 active enoxaparin (LOVENOX) syringe 40 mg 40 mg, Subcutaneous, Every 24 hours scheduled (Daily), First dose on 04/10/24 at 0900Administer in abdomen (at least 2 inches from navel) 04/12/2024 active ondansetron (ZOFRAN-ODT) disintegrating tablet 8 mg 8 mg, Oral, Once as needed, nausea, vomiting, Starting on 04/08/24 at 2022, For 1 dose 04/12/2024 active Problems Problem Status Onset Date Problem Type Date of Resolution Source Cholelithiasis without cholangitis active 2024-04-08 ProblemAct [facility] N Abdominal pain active 2024-04-09 ProblemAct [facility] Gallbladder sludge active EncounterDiagnosisAct [facility] Abnormal LFTs active EncounterDiagnosisAct [facility] Serum total bilirubin elevated active EncounterDiagnosisAct [facility]
== END 2024-07-04 09:22 | disposition home or self-care (01) ==
PROVIDERS: Visit Provider Surgery
DX: Z90.49 Acquired absence of other specified parts of digestive tract (principal)
CPT/HCPCS: 99024

== ENCOUNTER 2024-07-14 11:15 | Outpatient (AMB) | payer OTHER, SELFPAY ==
--- NOTE | 2024-07-14 11:32 | A.OFFVIS_ITS ---
Vital Signs 07/14/24 11:34 Height 5 ft 8 in Weight 245 lb BMI 37.2 BP 132/80 Blood Pressure Location Lt brachial Position Sitting Pulse 88 Pulse Source Pulse Oximeter Pulse Oximetry (%) 96 Intake Visit Reasons: INP-JOHN Accompanied by: Self / Same As Patient Allergies No Known Allergies [No Known Allergies*] Allergy (Verified 07/14/24 11:35) Do you need a note to return to daycare/school/sports/work: No HPI Comments Details: 48 year old patient referred to us by PCP Chata Arango, for sleep evaluation. Interval Medical History Cholecystectomy Jun 23, 2024. Sleeps on his back wakes up periodically through the night. He had a home sleep study: 03/2024: Severe Sleep Apnea Obstructive type AHI 84/ O2 79% with Alcon @4% He says his complaints because of his loud snoring and gasping for air through the night. He is trying to lose weight on Keto Diet starting 2024. BMI is 37. His diet is fairly good, mood is stable. Continues to have excessive daytime fatigue, and sluggishness in the morning, slow to get started. [facility] Medical History Tourette disorder Sleep apnea Hypertension Surgical History History of laparoscopic cholecystectomy (06/23/24) Hx of excision of mass History of appendectomy Family History Paternal Grandfather Lung cancer Colon cancer Father Hypertension Social History Housing: Apartment Alcohol intake: never Patient Tobacco Use Status: Never used Tobacco e-Cigarette/Vaping Use: Never Used Second Hand Smoke Exposure: No service: No Current occupational status: employed Current occupational exposures/hazards: No Cognitive needs: No Hearing needs: No Vision needs: No Review of Systems Const All systems reviewed & are unremarkable except as noted in HPI and below ENT Reports Normal hearing present Neuro Reports Normal hearing present Physical Exam Vital Signs: Last Vital Signs Pulse 88 07/14/24 11:34 BP 132/80 07/14/24 11:34 Pulse Ox 96 07/14/24 11:34 BMI result Body Mass Index 37.2 Const General: cooperative, comfortable and no acute distress Nutritional Appearance: obese (BMI is 37) centrally obese Orientation/consciousness: patient oriented x3 HEENT Face and sinus: Yes normal facial exam and Yes face symmetric Teeth and gingiva: other ([place] score of 4) Eyes Other: wears glasses Pupils: Equal, round and reactive pupils present Neck Neck: Yes full ROM and Yes supple Resp Effort & Inspection: normal respiratory effort and able to speak in complete sentences Neuro General: patient oriented x3 and moves all extremities Cranial nerves: Yes CN's II-XII intact bilaterally, Yes Facial sensation intact/muscles of mastication intact, Yes Equal, round and reactive pupils present, Yes Normal accommodation reflex present, Yes Bilaterally intact EOM present, Yes Nystagmus not present, Yes Normal facial strength present, Yes Midline tongue present, Yes Normal hearing present, Yes Ability to bilaterally rotate head present and Yes Ability to bilaterally elevate shoulders present Cognition (Neuro): normal cognition Gait exam (Neuro): Normal gait present Motor exam (neuro): 5/5 motor strength present throughout, Pronator motor function not present, no tremor noted and Normal motor muscle tone present throughout Deep tendon reflexes (DTR's): Right triceps reflex intensity grade: 2+, Left triceps reflex intensity grade: 2+, Rt Biceps (C5, C6): 2+, Left biceps reflex intensity grade: 2+, Right brachioradialis reflex intensity grade: 2+, Left brachioradialis reflex intensity grade: 2+, Right patellar reflex intensity grade: 2+ and Left patellar reflex intensity grade: 2+ Psych Appearance: grossly normal Mental Status: mental status grossly normal Speech and movement: Normal speech and movement present Insight: Good insight present (Psych) Judgement: Good judgement present (Psych) Results Reviewed Results Reviewed: HST 03/2024 KERMIT 84.2 JOHN Severe obstructive Apnea - O2 79% with Alcon @4% Assessment & Plan Assessment & Plan (1) Fatigue: Code(s): R53.83 - Other fatigue Category: Medical Qualifiers: Fatigue type: unspecified Qualified Code(s): R53.83 - Other fatigue (2) Severe obstructive sleep apnea: Code(s): G47.33 - Obstructive sleep apnea (adult) (pediatric) Category: Medical (3) Obesity (BMI 30-39.9): Code(s): E66.9 - Obesity, unspecified Category: Medical Plan JOHN - Severe Apnea KERMIT 84.2 O2 is 79% with Alcon at 4% -Will send him for titration and 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 -Fatigue- getting a good night sleep will help to alleviate excessive daytime sleepiness. BMI is Elevated -Will address this concern at next visit. Patient Education: #1 Modifialbe Risk Factor for Cardiovascular events is hypertension, with lifestyle and diet modifications, Look into the Dash Diet, or Mediterranean Diet to increase fresh vegetables and fruit intake, and decrease processed, boxed, high sodium foods. Compliance at least 4 hour requirement is stressed, however use the CPAP for as long as tolerable nightly. Call the office with any concerns or questions or message us on the portal. Will f/u in 6 months to monitor compliance. Coding Level of Care Code Est Pt Level 3 (88303) Diagnoses Fatigue, unspecified type R53.83 Fatigue type: unspecified Severe obstructive sleep apnea G47.33 Obesity (BMI 30-39.9) E66.9
[2024-07-14 11:34] VITALS: BP 132/80; PULSE 88; O2SAT 96; BMI 37.2
== END 2024-07-14 12:06 | disposition home or self-care (01) ==
PROVIDERS: Visit Provider Physician Assistant Medical
DX: R53.83 Other fatigue (principal); G47.33 Obstructive sleep apnea (adult) (pediatric); E66.9 Obesity, unspecified
CPT/HCPCS: 99213

== ENCOUNTER → 2024-07-14 11:15 | Outpatient (BNVA) | payer OTHER, SELFPAY | PROVIDERS: Visit Provider Physician Assistant Medical ==

== ENCOUNTER 2024-07-26 08:23 | Outpatient (AMB) | payer OTHER, SELFPAY ==
--- NOTE | 2024-07-26 08:26 | MHC.PC.OV ---
Vital Signs 07/26/24 08:28 07/26/24 08:42 Height 5 ft 8 in Weight 247 lb 4 oz BMI 37.6 BP 140/80 H 144/98 H Blood Pressure Location Lt brachial Lt brachial Position Sitting Sitting Pulse 96 Pulse Source Pulse Oximeter Temp 97.1 F Temp Source Skin Pulse Oximetry (%) 97 Oxygen Delivery Method Room Air Intake Visit Reasons: f/u HTN Intake Note: Patient is here to follow up on HTN. Pt decline flu shot today. Cellophaner Required: No Outside Physical Damage Appraiser: Not Required per policy Accompanied by: Self / Same As Patient Allergies No Known Allergies [No Known Allergies*] Allergy (Verified 07/26/24 08:27) Medication List - Last Reconciled 07/26/24 by Chata Santiago PA-C losartan 25 mg PO DAILY Tobacco use date assessed: 07/26/24 Dental Screening Dental Screen Date: 07/26/24 Did you have a dental visit in the last 12 months?: No Did you have a dental problem in the last 6 months where you did not have access to dental care?: No Was dental information given to patient?: No HPI f/u HTN HPI Details 48-year-old male with past medical history of obstructive sleep apnea, GERD, hypertension last seen June 2024 coming in for follow up on hypertension. In review of the notes, patient was seen by [facility] Neurology 07/14/2024 sent for titration of CPAP and advised to start therapy NAEEM. Patient was seen by General surgery 07/04/2024 status post laparoscopic cholecystectomy 06/23/2024 doing well advised to follow up as needed. Patient tells us today he was sent for CPAP however due to insurance issues has been postponing this and is still working on obtaining a CPAP machine. Overall he has been feeling generally well and checking his blood pressure on occasion at home. Typically when he takes his blood pressure is elevated in the 140s systolics over 90s diastolic. [facility] Medical History (Updated 07/26/24 @ 09:16 by Chata Santiago PA-C) Hypertension Tourette disorder Sleep apnea Surgical History History of laparoscopic cholecystectomy (06/23/24) Hx of excision of mass History of appendectomy Family History Paternal Grandfather Lung cancer Colon cancer Father Hypertension Social History Housing: Apartment Alcohol intake: never Patient Tobacco Use Status: Never used Tobacco e-Cigarette/Vaping Use: Never Used Second Hand Smoke Exposure: No service: No Current occupational status: employed Current occupational exposures/hazards: No Cognitive needs: No Hearing needs: No Vision needs: No Questionnaire PHQ-9 Over the last 2 weeks, how often have you been bothered by any of the following problems? 1. Little interest or pleasure in doing things: not at all 2. Feeling down, depressed, or hopeless: not at all 3. Trouble falling or staying asleep, or sleeping too much: not at all 4. Feeling tired or having little energy: not at all 5. Poor appetite or overeating: not at all 6. Feeling bad about yourself - or that you are a failure or have let yourself or your family down: not at all 7. Trouble concentrating on things, such as reading the newspaper or watching television: not at all 8. Moving or speaking so slowly that other people could have noticed. Or the opposite - being so fidgety or restless that you have been moving around a lot more than usual: not at all 9. Thoughts that you would be better off or of hurting yourself in some way: not at all Total score: 0 Depression Screening Interpretation: Negative Depression Screening Done: Yes Source: Developed by Drs. Chase Márquez, Summer Aburto, Sean Arshad and colleagues, with an educational randy from [employer]. Thrive Questionnaire Date Thrive assessed: 07/26/24 I am a: Patient What is your living situation today?: I have a steady place to live Within the past 12 months, did the food you bought not last and you didn't have the money to get more?: Never true Within the past 12 months, did you worry whether your food would run out before you got money to buy more?: Never true Do you have trouble paying for medicines?: No Do you have trouble getting transportation to medical appointments?: No Do you have trouble paying your heating and electricity bill?: No Do you have trouble taking care of your child, family member or friend?: No Do you have trouble with day-to-day activities such as bathing, preparing meals, shopping, managing finances, etc.?: No Are you currently unemployed and looking for a job?: No Are you interested in more education?: No Please select the resources that you would like help with: None Currently or been in a relationship where the following occur: No concerns reported THRIVE Score: 0 AUDIT C Alcohol Use Questionnaire (AUDIT-C) 1. How often do you have a drink containing alcohol?: Never 3. How often do you have six or more drinks on one occasion?: Never Total Score: 0 TRISTIAN-7 AMB Questionnaire TRISTIAN-7 Date TRISTIAN - 7 assessed: 07/26/24 Feeling nervous, anxious, or on edge: 0 = Not at all Not being able to stop or control worryin = Not at all Worrying too much about different things: 0 = Not at all Trouble relaxin = Not at all Being so restless that it is hard to sit still: 0 = Not at all Becoming easily annoyed or irritable: 0 = Not at all Feeling afraid as if something awful might happen: 0 = Not at all Total TRISTIAN-7 score (0-4 normal; 5-9 mild; 10-14 moderate; 15-21 severe): 0 Source: Developed by Drs. Chase Márquez, Summer Aburto, Sean Arshad and colleagues, with an educational randy from [employer]. Review of Systems Const Denies body aches, Denies chills, Denies fever(s), Denies headache(s) and Denies poor appetite Eyes Reports no additional complaints ENT Denies dizziness and Denies headache(s) Card Denies chest pain, Denies syncope, Denies edema, Denies irregular heart rhythm, Denies lightheadedness and Denies dyspnea Resp Denies cough and Denies dyspnea GI Denies abdominal pain, Denies constipation, Denies diarrhea, Denies nausea and Denies vomiting Reports no additional complaints Musc Reports no additional complaints and Denies abnormal gait Skin/Breast Reports system reviewed and no additional complaints, except as documented Neuro Denies abnormal gait, Denies dizziness, Denies syncope and Denies headache(s) Psych Reports no additional complaints Physical exam (Primary Care) Vital Signs: Last Vital Signs Temp 97.1 F 07/26/24 08:28 Pulse 96 07/26/24 08:28 BP 140/80 H 07/26/24 08:28 Pulse Ox 97 07/26/24 08:28 Oxygen Delivery Method Room Air 07/26/24 08:28 BMI result Body Mass Index 37.6 Tobacco/Smoking Status: Tobacco use Status Tobacco use date assessed 07/26/24 07/26/24 08:32 Patient Tobacco Use Status Never used Tobacco 07/26/24 08:32 e-Cigarette/Vaping Use Never Used 07/26/24 08:32 PHQ-9: PHQ-9 Score PHQ-9: Total score 0 07/26/24 08:32 Depression Screening Interpretation: Negative Thrive Assessment: Date of Thrive Assessment Date Thrive assessed 07/26/24 07/26/24 08:32 Currently or been in a relationship where the following occur: No concerns reported Const General: cooperative, healthy appearing, comfortable and no acute distress Orientation/consciousness: patient oriented x3 HENMT Head: Yes normocephalic Ears: hearing grossly normal bilaterally General nose exam: Normal external nose present Eyes General: appearance normal, both eyes and all related structures Conjunctivae: conjunctivae normal Neck Neck: Yes full ROM and Yes no lymphadenopathy Resp Effort & Inspection: normal respiratory effort Auscultation: clear to auscultation bilaterally, no crackles, no rales, no rhonchi and no wheezes Cardio Rate: regular rate Rhythm: regular rhythm Skin General skin exam: no rashes or lesions noted Neuro General: patient oriented x3 Gait exam (Neuro): Normal gait present Extrem General: Yes normal to inspection, Yes full ROM and No edema Psych Affect: normal affect Attitude: cooperative Insight: Good insight present (Psych) Judgement: Good judgement present (Psych) Coding Level of Care Code Est Pt Level 3 (59365) Diagnoses Obesity (BMI 30-39.9) E66.9 Hypertension I10 Assessment & Plan Assessment & Plan (1) Obesity (BMI 30-39.9): Code(s): E66.9 - Obesity, unspecified Category: Medical Plan: Healthy diet and regular exercise is encouraged. (2) Hypertension: Code(s): I10 - Essential (primary) hypertension Category: Medical Plan: Continue on current blood pressure medication. Avoid salt intake and encourage healthy diet and regular exercise. We will plan to increase losartan to 50 mg as blood pressure continues to be elevated in the 140 systolic over 90s diastolic. Advised patient to continue taking blood pressure at home. Recommending to month follow up however given insurance issues patient would like to have 4 month follow up. Advised patient as he is going to be follow up in 4 months he needs to be monitoring the blood pressure and reach out to the office on a regular basis communicate these blood pressures and may require medication adjustment before the 4 months. Patient agrees and understands and we will follow up in 4 months. Plan This note was constructed using voice recognition software. While every effort has been made to ensure accuracy and dredge lever operator, still areas may have been included sometimes these areas may affect the content or meeting of the given symptoms. Total time spent caring for the patient today was 20 minutes. This includes time spent before the visit reviewing the chart, time spent during the visit, and time spent after the visit and documentation. Medications: New losartan 50 mg PO DAILY 90 tabs 2RF Discontinued losartan Discontinued Reason: Patient no longer taking 25 mg PO DAILY 30 tabs 2RF
[2024-07-26 08:28] VITALS: BP 140/80; PULSE 96; TEMP 36.2; O2SAT 97; BMI 37.6
[2024-07-26 08:42] VITALS: BP 144/98
== END 2024-07-26 08:55 | disposition home or self-care (01) ==
DX: I10 Essential (primary) hypertension (principal); E66.812 Obesity, class 2; Z68.37 Body mass index [BMI] 37.0-37.9, adult

== ENCOUNTER 2024-12-28 08:28 | Outpatient (AMB) | payer OTHER, SELFPAY ==
[2024-12-28 08:29] VITALS: BP 134/96; PULSE 104; RESP 18; TEMP 36.2; O2SAT 97; BMI 35.2
--- NOTE | 2024-12-28 08:29 | MHC.PC.OV ---
Vital Signs 12/28/24 08:29 12/28/24 08:55 Height 5 ft 8 in Weight 231 lb 9.6 oz BMI 35.2 BP 134/96 H 138/94 H Blood Pressure Location Lt brachial Lt brachial Position Sitting Sitting Respiration 18 Pulse 104 H Pulse Source Pulse Oximeter Temp 97.1 F Temp Source Temporal Artery Scan Pulse Oximetry (%) 97 Oxygen Delivery Method Room Air Intake Visit Reasons: f/u HTN Dye Boarding Machine Operator Required: No Accompanied by: Self / Same As Patient Allergies No Known Allergies (No Known Allergies*) Allergy (Verified 12/28/24 08:46) Medication List - Last Reconciled 12/28/24 by Chata Santiago PA-C losartan 50 mg PO DAILY Tobacco use date assessed: 12/28/24 Dental Screening Dental Screen Date: 12/28/24 Did you have a dental visit in the last 12 months?: No Did you have a dental problem in the last 6 months where you did not have access to dental care?: No Was dental information given to patient?: No HPI f/u HTN HPI Details 49-year-old male with past medical history of obstructive sleep apnea, GERD, hypertension last seen 07/2024 coming in for follow up. Losartan was increased at his last visit. Presenting with management of hypertension, obstructive sleep apnea, and hyperlipidemia. Reports consistently high blood pressure readings at home, sometimes reaching 160/120 mmHg, without associated symptoms such as headaches or dizziness. Prescribed losartan 50 mg but admits to inconsistent adherence, particularly on weekends. Recent readings at a store showed improvement to 142/89 mmHg, but home readings remain unreliable due to a potentially faulty cuff. Has a CPAP machine but initially struggled with its use due to interference from facial hair. Reports improved adherence and effectiveness when used throughout the night, although sometimes removes it unconsciously during sleep. Previous blood work indicated elevated cholesterol levels, and the patient has not significantly altered his diet to address this. [facility] Medical History Hypertension Tourette disorder Sleep apnea Surgical History History of laparoscopic cholecystectomy (06/23/24) Hx of excision of mass History of appendectomy Family History Paternal Grandfather Lung cancer Colon cancer Father Hypertension Social History Housing: Apartment Alcohol intake: never Patient Tobacco Use Status: Never used Tobacco e-Cigarette/Vaping Use: Never Used Second Hand Smoke Exposure: No service: No Current occupational status: employed Current occupational exposures/hazards: No Cognitive needs: No Hearing needs: No Vision needs: Yes (Glasses) Questionnaire Thrive Questionnaire Date Thrive assessed: 12/28/24 I am a: Patient What is your living situation today?: I have a steady place to live Within the past 12 months, did the food you bought not last and you didn't have the money to get more?: Never true Within the past 12 months, did you worry whether your food would run out before you got money to buy more?: Never true Do you have trouble paying for medicines?: No Do you have trouble getting transportation to medical appointments?: No Do you have trouble paying your heating and electricity bill?: No Do you have trouble taking care of your child, family member or friend?: No Do you have trouble with day-to-day activities such as bathing, preparing meals, shopping, managing finances, etc.?: No Are you currently unemployed and looking for a job?: No Are you interested in more education?: No Please select the resources that you would like help with: None Currently or been in a relationship where the following occur: No concerns reported THRIVE Score: 0 AUDIT C Alcohol Use Questionnaire (AUDIT-C) 1. How often do you have a drink containing alcohol?: Monthly or less 2. How many drinks containing alcohol do you have on a typical day when you are drinking?: 3 or 4 3. How often do you have six or more drinks on one occasion?: Never Total Score: 2 Score Reviewed/Action Taken: No TRISTIAN-7 AMB Questionnaire TRISTIAN-7 Date TRISTIAN - 7 assessed: 07/26/24 Source: Developed by Drs. Chase Márquez, Summer Aburto, Sean Arshad and colleagues, with an educational randy from [employer]. Review of Systems Const Denies body aches, Denies chills, Denies fever(s), Denies headache(s) and Denies poor appetite Eyes Reports no additional complaints ENT Denies dysphagia, Denies dizziness, Denies headache(s) and Denies odynophagia Card Denies chest pain, Denies syncope, Denies edema, Denies irregular heart rhythm, Denies lightheadedness and Denies dyspnea Resp Denies cough and Denies dyspnea GI Denies abdominal pain, Denies constipation, Denies dysphagia, Denies diarrhea, Denies nausea, Denies odynophagia and Denies vomiting Reports no additional complaints Musc Reports no additional complaints and Denies abnormal gait Skin/Breast Reports system reviewed and no additional complaints, except as documented Neuro Denies abnormal gait, Denies dizziness, Denies syncope and Denies headache(s) Psych Reports no additional complaints Physical exam (Primary Care) Vital Signs: Last Vital Signs Temp 97.1 F 12/28/24 08:29 Pulse 104 H 12/28/24 08:29 Resp 18 12/28/24 08:29 BP 134/96 H 12/28/24 08:29 Pulse Ox 97 12/28/24 08:29 Oxygen Delivery Method Room Air 12/28/24 08:29 BMI result Body Mass Index 35.2 Tobacco/Smoking Status: Tobacco use Status Tobacco use date assessed 12/28/24 12/28/24 08:36 Patient Tobacco Use Status Never used Tobacco 12/28/24 08:36 e-Cigarette/Vaping Use Never Used 12/28/24 08:36 Thrive Assessment: Date of Thrive Assessment Date Thrive assessed 12/28/24 12/28/24 08:36 Currently or been in a relationship where the following occur: No concerns reported Const General: cooperative, healthy appearing, comfortable and no acute distress Orientation/consciousness: patient oriented x3 HENMT Head: Yes normocephalic Ears: hearing grossly normal bilaterally General nose exam: Normal external nose present Eyes General: appearance normal, both eyes and all related structures Conjunctivae: conjunctivae normal Neck Neck: Yes full ROM and Yes no lymphadenopathy Resp Effort & Inspection: normal respiratory effort Auscultation: clear to auscultation bilaterally, no crackles, no rales, no rhonchi and no wheezes Cardio Rate: regular rate Rhythm: regular rhythm Skin General skin exam: no rashes or lesions noted Neuro General: patient oriented x3 Gait exam (Neuro): Normal gait present Extrem General: Yes normal to inspection, Yes full ROM and No edema Psych Affect: normal affect Attitude: cooperative Insight: Good insight present (Psych) Judgement: Good judgement present (Psych) Coding Level of Care Code Est Pt Level 3 (55555) Diagnoses Obesity (BMI 30-39.9) E66.9 Primary hypertension I10 Hypertension type: primary hypertension Severe obstructive sleep apnea G47.33 Hypercholesterolemia E78.00 Screening for diabetes mellitus Z13.1 Assessment & Plan Assessment & Plan (1) Obesity (BMI 30-39.9): Code(s): E66.9 - Obesity, unspecified Category: Medical Plan: Healthy diet and regular exercise is encouraged. Noted 16 lb weight loss since last visit. (2) Hypertension: Code(s): I10 - Essential (primary) hypertension Category: Medical Qualifiers: Hypertension type: primary hypertension Qualified Code(s): I10 - Essential (primary) hypertension Plan: Continue on current blood pressure medication. Avoid salt intake and encourage healthy diet and regular exercise. Plan to increase Losartan 100mg at this time due to elevated BPs. Continue to monitor BP at home and bring log to next visit. (3) Severe obstructive sleep apnea: Code(s): G47.33 - Obstructive sleep apnea (adult) (pediatric) Category: Medical Plan: Continue to follow with Neurology and strongly recommend consistent use of CPAP. (4) Hypercholesterolemia: Code(s): E78.00 - Pure hypercholesterolemia, unspecified Category: Medical Plan: Avoid foods that are high in cholesterol such as red meat, fried foods, eggs and baked goods. Triglyceride goal of less than 150 and LDL goal of less than 130. Ordered for updated blood work. (5) Screening for diabetes mellitus: Code(s): Z13.1 - Encounter for screening for diabetes mellitus Category: Medical Plan: Blood work ordered. Plan The patient's losartan dosage will be increased to 100 mg to improve hypertension control, with instructions to double the current 50 mg tablets until the new prescription is available. He should bring his home blood pressure cuff to the next appointment to verify its accuracy. Continued use of the CPAP machine is advised to manage obstructive sleep apnea, with adjustments for facial hair as needed. Annual blood work is scheduled to assess cholesterol and blood sugar levels, and dietary changes are recommended to lower cholesterol intake. This note was constructed using voice recognition software. While every effort has been made to ensure accuracy and carpenters, still areas may have been included sometimes these areas may affect the content or meeting of the given symptoms. Total time spent caring for the patient today was 20 minutes. This includes time spent before the visit reviewing the chart, time spent during the visit, and time spent after the visit and documentation. Patient was informed and verbally consented to the use of an ambient scribe for clinic note documentation during this visit. Orders: Orders Vitamin B12 and Folate Today I10 - Essential (primary) hypertension, Z13.21 - Encounter for screening for nutritional disorder Lipid Panel Today I10 - Essential (primary) hypertension, Z13.220 - Encounter for screening for lipoid disorders Complete Blood Count Auto Diff Today I10 - Essential (primary) hypertension, Z00.00 - Encounter for general adult medical examination without abnormal findings PSA, Ultra Sensitive Today E66.9 - Obesity, unspecified, Z00.00 - Encounter for general adult medical examination without abnormal findings Comprehensive Met. Panel Today I10 - Essential (primary) hypertension, Z00.00 - Encounter for general adult medical examination without abnormal findings TSH reflex Free T4 Today E66.9 - Obesity, unspecified, Z00.00 - Encounter for general adult medical examination without abnormal findings Free T4 (Free Thyroxine) Today E66.9 - Obesity, unspecified, Z00.00 - Encounter for general adult medical examination without abnormal findings Hemoglobin A1c Today E66.9 - Obesity, unspecified, Z13.1 - Encounter for screening for diabetes mellitus
[2024-12-28 08:55] VITALS: BP 138/94
== END 2024-12-28 09:05 | disposition home or self-care (01) ==
DX: I10 Essential (primary) hypertension (principal); E66.9 Obesity, unspecified; Z68.35 Body mass index [BMI] 35.0-35.9, adult; G47.33 Obstructive sleep apnea (adult) (pediatric); E78.00 Pure hypercholesterolemia, unspecified; Z13.1 Encounter for screening for diabetes mellitus